=== PATIENT | female | born 1995 | race Caucasian/White ===

== ENCOUNTER → 2016-09-14 | Outpatient (REF) | payer OTHER ==
[~2016-09-14] MED LIST: ACET50TA PO; IBUP-1114 PO; PRENTAB9 PO
== END ==
LOC: M SFHCCAPE 09:38
PROVIDERS: ATTEND Physician Assistant
DX: R35.0 Frequency of micturition (principal)

== ENCOUNTER → 2016-09-18 | Outpatient (CLI) | payer OTHER ==
--- NOTE | 2016-09-19 01:54 | REP ---
Clinical: Pain without trauma . Technique: AP, lateral, bilateral oblique views left wrist . Findings: The carpal bones, surrounding osseous structures, soft tissues, and joint spaces are normal. There is no evidence for acute fracture or dislocation. No subcutaneous emphysema or radiodense foreign body. Impression: Normal wrist series. No acute fracture or dislocation Signed by Garrett Watson MD 09/19/2016 01:45 A
== END ==
LOC: M CLY 11:37
PROVIDERS: ATTEND Physician Assistant
DX: M25.532 Pain in left wrist (principal)

== ENCOUNTER → 2016-09-18 | Outpatient (REF) | payer OTHER | LOC: M SFHCCAPE 10:50 | PROVIDERS: ATTEND Physician Assistant | DX: N39.0 Urinary tract infection, site not specified (principal) ==

== ENCOUNTER 2016-09-23 17:09 | Emergency (ER) | payer OTHER ==
[2016-09-23] MEDS ORDERED: cefTRIAXone SOD 1 GM VIAL (J0696) As Ordered ONE (18:40)
[2016-09-23] MEDS ORDERED: AZITHROMYCIN 250 MG TAB As Ordered ONE (18:40)
[2016-09-23] MEDS ORDERED: LIDOCAINE 1% MDV 20ML VIAL As Ordered ONE (18:41)
--- NOTE | 2016-09-23 20:40 | REPUSA ---
CLINICAL HISTORY: Pelvic pain. TECHNIQUE: Realtime sonographic images were obtained in multiple projections via TA approach. COMMENTS: The uterus is anteverted measuring 9.4 x 5.1 x 6.6 cm. The endometrial echo pattern is within normal limits measuring 15 mm. There is trace amount of free fluid within the pelvic cul-de-sac. Both ovaries are free of solid or cystic mass. There is no evidence for abnormal vascularity. IMPRESSION: Normal study. Thank you for your kind referral of this patient.
--- NOTE | 2016-09-23 21:12 | EDDOCDS ---
Nurse's Notes [facility] Name: Marlys Mays Age: 20 yrs Sex: Female : 1995 Arrival Date: 09/23/2016 Time: 17:09 Bed I3 / M3 Private MD: Dena Calloway A. Diagnosis: Pelvic and perineal pain;Female pelvic inflammatory disease, unspecified Presentation: 09/23 17:24 Presenting complaint: Patient states: patient has increased vaginal pain. Patient gave hs1 naturally 3 months ago vaginally. Patient states increased pain. Patient also reports UTI symptoms. Patient has reported ongoing issue and multiple medications and multiple cultures and symptoms not improving. Adult Sepsis Screening: The patient does not have new or worsening altered mentation. Patient's respiratory rate is less than 22. Systolic blood pressure is greater than 100. Patient has a qSOFA score of 0- Negative Sepsis Screen. Suicide/Homicide risk assessment- the patient denies having any suicidal and/or homicidal ideations and does not present with any other emotional, behavioral or mental health complaints. 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 Transition of care: patient was not received from another setting of care. 17:24 Acuity: VERONICA Level 3 hs1 17:24 Method Of Arrival: Walkin/Carried/Asstd hs1 Triage Assessment: 17:30 General: Appears in no apparent distress, Behavior is appropriate for age, cooperative. hs1 Pain: Location: pelvis Pain currently is 9 out of 10 on a pain scale. Quality of pain is described as burning. HIV screening NA for this visit Offered previously. Respiratory: No deficits noted. Derm: Skin is pink, warm & dry. normal. 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 Cipro 500 mg Oral tab 1 tab every 12 hours (Last dose: 09/22/2016) - PMHx: none; - PSHx: Adenoidectomy; Tonsillectomy; - Social history: Smoking status: Patient states was never smoker of tobacco. No barriers to communication noted, The patient speaks fluent Indian, Speaks appropriately for age. - Family history: Not pertinent. - : The pt / caregiver states he / she is not on anticoagulants. Home medication list is obtained from the patient. - Exposure Risk Screening:: None identified. Screenin:53 Screening information is obtained from the patient. Fall risk: No risks identified. hs1 Assistance ADL's: requires no assistance with activities of daily living. Abuse/DV Screen: The patient / caregiver reports he/she is: not in a situation that causes fear, pain or injury. Nutritional screening: No deficits noted. Advance Directives: There is no active DNR order. home support is adequate. Assessment: 18:52 General: Appears in no apparent distress, well nourished, well groomed, Behavior is ttb appropriate for age, cooperative, pleasant. Pain: Location: lower abd. Neurological: Level of Consciousness is awake, alert. Cardiovascular: Chest pain is denied. Respiratory: No deficits noted. Airway is patent. Derm: Skin is normal. 19:40 Reassessment: Patient appears in no apparent distress at this time. pt back from US. ttb Steady gait. NAD noted.. 20:57 General: Appears in no apparent distress, comfortable, Behavior is appropriate for age, ms18 cooperative. Pain: Denies pain. Neurological: No deficits noted. Cardiovascular: No deficits noted. Respiratory: Airway is patent Respiratory effort is even, unlabored, Respiratory pattern is regular, symmetrical. GI: Abdomen is non- distended. :. Derm: Skin is pink, warm & dry. Vital Signs: 17:10 BP 145 / 86; Pulse 78; Resp 18 S; Temp 97.0; Pulse Ox 100% on R/A; Weight 72.57 kg (R); dd6 Height 5 ft. 2 in. (157.48 cm) (R); 20:57 BP 135 / 67; Pulse 74; Resp 18; Temp 97.4; Pulse Ox 100% ; Pain 0/10; ms18 17:10 Body Mass Index 29.26 (72.57 kg, 157.48 cm) dd6 Vitals: 17:10 Log In Time: September 23, 2016 at 17:08. dd6 ED Course: 17:10 Patient visited by Brendan Srinivasan PCA. dd6 17:10 Dena Calloway is Private Physician. dd6 17:10 Patient moved to Waiting dd6 17:11 Patient moved to Pre RCE dd6 17:28 Triage Initiated hs1 17:31 Patient moved to Triage 2 hs1 17:50 Noel Le PA is PHCP. btw 17:50 Laura Meraz MD is Attending Physician. btw 17:50 Patient visited by Noel Le PA. btw 17:53 Urine Culture Sent. ct3 18:08 Patient moved to I3 / M3 btw 18:35 Assist provider with pelvic exam: Set up pelvic tray. Specimens sent to lab. Performed ms18 by Noel ROBBINS Patient tolerated. 18:38 GC & Chlamydia Amplification Sent. jml1 18:38 Wet Prep Sent. jml1 18:45 Patient visited by Amy Christy,TR. ms18 18:45 No IV's were initiated during this patient's visit. ms18 18:52 The patient / caregiver is instructed regarding the plan of care and ED course. ttb Accompanied by Family Member, Patient has correct armband on for positive identification. 19:40 Patient visited by Renu Tripp RN. ttb 20:45 Patient visited by Amy Christy,TR. ms18 20:57 Phoenix Lamb MD is Referral Physician. btw 20:57 Property sent home with patient. :Personal belongings accompany Pt. ms18 21:00 [facility] Payment Agreement was scanned into [employer]ter and attached to record. zo 21:05 Patient visited by Amy Christy RN. ms18 Administered Medications: 18:52 Drug: cefTRIAXone 1 grams [ceftriaxone 1 gram solution for injection (1 grams)] Route: ttb IM; Site: left gluteus; 21:09 Follow up: Response: No Adverse Reaction ms18 18:52 Drug: azithromycin 1 grams [azithromycin 250 mg tablet (4 tabs)] Route: PO; ttb 21:09 Follow up: Response: No Adverse Reaction ms18 Point of Care Testing: Urine Dip: 17:52 pH: 5; ; Specific [place]: 1.010; Ketones: Moderate; Glucose: Negative; Protein: Trace; hs1 Leukocytes: Positive (+); Nitrite: Negative ; Blood: Negative; Bilirubin: Negative ; Urobilinogen: Normal Ranges: Order Results: Lab Order: Wet Prep; SPEC'M 09/23/16 18:30 Test: WET PREP; Value: WET PREP RESULT; Status: F Test: WET PREP; Value: MANY EPITHELIAL CELLS PRESENT; Status: F Test: WET PREP; Value: MANY WBC; Status: F Test: WET PREP; Value: MANY SHORT RODS PRESENT; Status: F Test: WET PREP; Value: FEW LONG RODS PRESENT; Status: F Outcome: 18:52 Ultrasound Study completed. ttb 20:57 Discharge ordered by Provider. btw 20:57 Discharge Assessment: Patient awake, alert and oriented x 3. No cognitive and/or ms18 functional deficits noted. Patient verbalized understanding of disposition instructions. patient administered narcotics - no. The following High Risk Discharge criteria are identified: None. Discharged to home ambulatory. Condition: good Condition: stable Condition: improved. Discharge instructions given to patient, Instructed on discharge instructions, follow up and referral plans. medication usage, Demonstrated understanding of instructions, medications, Pt was receptive of discharge instructions/ teaching. Prescriptions given X 1. 21:10 Patient left the ED. ms18 Signatures: Sony Mahmood Daniell, REFERENCE LIBRARY ASSISTANT REFERENCE LIBRARY ASSISTANT dd6 Noel Le PA PA btw Julita Spencer, RN RN hs1 Ying Jose, REFERENCE LIBRARY ASSISTANT REFERENCE LIBRARY ASSISTANT ct3 Cristino Ashraf jml1 Renu Tripp, RN RN ttb Amy ChristyRN RN ms18 SHEFALI
--- NOTE | 2016-09-23 21:12 | EDDOCDS ---
Physician Documentation [facility] Name: Marlys Mays Age: 20 yrs Sex: Female : 1995 Arrival Date: 09/23/2016 Time: 17:09 Bed I3 / M3 Private MD: Dena Calloway A. Disposition: 09/23/16 20:57 Discharged to Home/Self Care. Impression: Pelvic and perineal pain, Female pelvic inflammatory disease, unspecified. - Condition is Stable. - Discharge Instructions: Pelvic Inflammatory Disease, Pelvic Pain, Female. - Prescriptions for Diflucan 150 mg Oral Tablet - take 1 tablet by ORAL route one time for 1 day; 1 tablet. - Medication Reconciliation, Local Pharmacy Hours form. - Follow up: Phoenix Lamb MD; When: Call to arrange an appointment; Reason: Further diagnostic work-up, Recheck today's complaints, Continuance of care. - Problem is an ongoing problem. - Symptoms are unchanged. Historical: - Allergies: No known drug Allergies; - Home Meds: 1. Cipro 500 mg Oral tab 1 tab every 12 hours (Last dose: 09/22/2016) - PMHx: none; - PSHx: Adenoidectomy; Tonsillectomy; - Social history: Smoking status: Patient states was never smoker of tobacco. No barriers to communication noted, The patient speaks fluent German, Speaks appropriately for age. - Family history: Not pertinent. - : The pt / caregiver states he / she is not on anticoagulants. Home medication list is obtained from the patient. - Exposure Risk Screening:: None identified. 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 2 in. (157.48 cm) (R); 20:57 BP 135 / 67; Pulse 74; Resp 18; Temp 97.4; Pulse Ox 100% ; Pain 0/10; ms18 17:10 Body Mass Index 29.26 (72.57 kg, 157.48 cm) dd6 MDM: 17:42 Urine Dip ordered. btw 17:43 Urine Culture Ordered. EDMS 18:06 Set up pelvic ordered. btw 18:07 GC & Chlamydia Amplification Ordered. EDMS 18:07 Wet Prep Ordered. EDMS 18:38 cefTRIAXone 1 grams IM once ordered. btw 18:38 azithromycin 1 grams PO once ordered. btw 18:39 -US Pelvic Non-Ob Complete Ordered. EDMS 18:39 DUPLEX SCAN LIMITED (DOPPLER)+US Ordered. EDMS 18:50 Wet Prep Reviewed. btw 20:08 Financial registration complete. zo 21:00 [facility] Payment Agreement was scanned into [email or web address] and attached to record. zo Point of Care Testing: Urine Dip: 17:52 pH: 5; ; Specific [place]: 1.010; Ketones: Moderate; Glucose: Negative; Protein: Trace; hs1 Leukocytes: Positive (+); Nitrite: Negative ; Blood: Negative; Bilirubin: Negative ; Urobilinogen: Normal Ranges: Administered Medications: 18:52 Drug: cefTRIAXone 1 grams [ceftriaxone 1 gram solution for injection (1 grams)] Route: ttb IM; Site: left gluteus; 21:09 Follow up: Response: No Adverse Reaction ms18 18:52 Drug: azithromycin 1 grams [azithromycin 250 mg tablet (4 tabs)] Route: PO; ttb 21:09 Follow up: Response: No Adverse Reaction ms18 Signatures: Dispatcher MedHost Sony Cordova Brandon, PA PA btw Julita Specner RN RN hs1 Renu Tripp RN RN ttb Amy Christy RN RN ms18 The chart was reviewed and I authenticate all verbal orders and agree with the evaluation and treatment provided.Attachments: 21:00 [facility] Payment Agreement zo MTDD
--- NOTE | 2016-09-25 22:11 | EDDOCDS ---
Physician Documentation [facility] Name: Marlys Mays Age: 20 yrs Sex: Female : 1995 Arrival Date: 09/23/2016 Time: 17:09 Bed I3 / M3 Private MD: Dena Calloway A. Disposition: 09/23/16 20:57 Discharged to Home/Self Care. Impression: Pelvic and perineal pain, Female pelvic inflammatory disease, unspecified. - Condition is Stable. - Discharge Instructions: Pelvic Inflammatory Disease, Pelvic Pain, Female. - Prescriptions for Diflucan 150 mg Oral Tablet - take 1 tablet by ORAL route one time for 1 day; 1 tablet. - Medication Reconciliation, Local Pharmacy Hours form. - Follow up: Phoenix Lamb MD; When: Call to arrange an appointment; Reason: Further diagnostic work-up, Recheck today's complaints, Continuance of care. - Problem is an ongoing problem. - Symptoms are unchanged. Historical: - Allergies: No known drug Allergies; - Home Meds: 1. Cipro 500 mg Oral tab 1 tab every 12 hours (Last dose: 09/22/2016) - PMHx: none; - PSHx: Adenoidectomy; Tonsillectomy; - Social history: Smoking status: Patient states was never smoker of tobacco. No barriers to communication noted, The patient speaks fluent Mexican, Speaks appropriately for age. - Family history: Not pertinent. - : The pt / caregiver states he / she is not on anticoagulants. Home medication list is obtained from the patient. - Exposure Risk Screening:: None identified. 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 2 in. (157.48 cm) (R); 20:57 BP 135 / 67; Pulse 74; Resp 18; Temp 97.4; Pulse Ox 100% ; Pain 0/10; ms18 17:10 Body Mass Index 29.26 (72.57 kg, 157.48 cm) dd6 MDM: 17:42 Urine Dip ordered. btw 17:43 Urine Culture Ordered. EDMS 18:06 Set up pelvic ordered. btw 18:07 GC & Chlamydia Amplification Ordered. EDMS 18:07 Wet Prep Ordered. EDMS 18:38 cefTRIAXone 1 grams IM once ordered. btw 18:38 azithromycin 1 grams PO once ordered. btw 18:39 -US Pelvic Non-Ob Complete Ordered. EDMS 18:39 DUPLEX SCAN LIMITED (DOPPLER)+US Ordered. EDMS 18:50 Wet Prep Reviewed. btw 20:08 Financial registration complete. zo 21:00 [facility] Payment Agreement was scanned into [employer] and attached to record. zo 09/24 19:15 T-Sheet-- Draft Copy was scanned into [employer] and attached to record. klr Point of Care Testing: Urine Dip: 09/23 17:52 pH: 5; ; Specific [place]: 1.010; Ketones: Moderate; Glucose: Negative; Protein: Trace; hs1 Leukocytes: Positive (+); Nitrite: Negative ; Blood: Negative; Bilirubin: Negative ; Urobilinogen: Normal Ranges: Administered Medications: 18:52 Drug: cefTRIAXone 1 grams [ceftriaxone 1 gram solution for injection (1 grams)] Route: ttb IM; Site: left gluteus; 21:09 Follow up: Response: No Adverse Reaction ms18 18:52 Drug: azithromycin 1 grams [azithromycin 250 mg tablet (4 tabs)] Route: PO; ttb 21:09 Follow up: Response: No Adverse Reaction ms18 Signatures: Dispatcher MedHost EDMS Sony Mahmood Brandon, PA PA btw Julita Spencer RN RN hs1 Renu Tripp RN RN ttb Amy Christy RN RN ms18 Gwen Collier klr The chart was reviewed and I authenticate all verbal orders and agree with the evaluation and treatment provided.Attachments: 21:00 [facility] Payment Agreement zo 09/24 19:15 T-Sheet-- Draft Copy klr Chart Complete MTDD
--- NOTE | 2016-09-25 22:11 | EDDOCDS ---
Nurse's Notes [facility] Name: Marlys Mays Age: 20 yrs Sex: Female : 1995 Arrival Date: 09/23/2016 Time: 17:09 Bed I3 / M3 Private MD: Dena Calloway A. Diagnosis: Pelvic and perineal pain;Female pelvic inflammatory disease, unspecified Presentation: 09/23 17:24 Presenting complaint: Patient states: patient has increased vaginal pain. Patient gave hs1 naturally 3 months ago vaginally. Patient states increased pain. Patient also reports UTI symptoms. Patient has reported ongoing issue and multiple medications and multiple cultures and symptoms not improving. Adult Sepsis Screening: The patient does not have new or worsening altered mentation. Patient's respiratory rate is less than 22. Systolic blood pressure is greater than 100. Patient has a qSOFA score of 0- Negative Sepsis Screen. Suicide/Homicide risk assessment- the patient denies having any suicidal and/or homicidal ideations and does not present with any other emotional, behavioral or mental health complaints. 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 Transition of care: patient was not received from another setting of care. 17:24 Acuity: VERONICA Level 3 hs1 17:24 Method Of Arrival: Walkin/Carried/Asstd hs1 Triage Assessment: 17:30 General: Appears in no apparent distress, Behavior is appropriate for age, cooperative. hs1 Pain: Location: pelvis Pain currently is 9 out of 10 on a pain scale. Quality of pain is described as burning. HIV screening NA for this visit Offered previously. Respiratory: No deficits noted. Derm: Skin is pink, warm & dry. normal. 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 Cipro 500 mg Oral tab 1 tab every 12 hours (Last dose: 09/22/2016) - PMHx: none; - PSHx: Adenoidectomy; Tonsillectomy; - Social history: Smoking status: Patient states was never smoker of tobacco. No barriers to communication noted, The patient speaks fluent Irish, Speaks appropriately for age. - Family history: Not pertinent. - : The pt / caregiver states he / she is not on anticoagulants. Home medication list is obtained from the patient. - Exposure Risk Screening:: None identified. Screenin:53 Screening information is obtained from the patient. Fall risk: No risks identified. hs1 Assistance ADL's: requires no assistance with activities of daily living. Abuse/DV Screen: The patient / caregiver reports he/she is: not in a situation that causes fear, pain or injury. Nutritional screening: No deficits noted. Advance Directives: There is no active DNR order. home support is adequate. Assessment: 18:52 General: Appears in no apparent distress, well nourished, well groomed, Behavior is ttb appropriate for age, cooperative, pleasant. Pain: Location: lower abd. Neurological: Level of Consciousness is awake, alert. Cardiovascular: Chest pain is denied. Respiratory: No deficits noted. Airway is patent. Derm: Skin is normal. 19:40 Reassessment: Patient appears in no apparent distress at this time. pt back from US. ttb Steady gait. NAD noted.. 20:57 General: Appears in no apparent distress, comfortable, Behavior is appropriate for age, ms18 cooperative. Pain: Denies pain. Neurological: No deficits noted. Cardiovascular: No deficits noted. Respiratory: Airway is patent Respiratory effort is even, unlabored, Respiratory pattern is regular, symmetrical. GI: Abdomen is non- distended. :. Derm: Skin is pink, warm & dry. Vital Signs: 17:10 BP 145 / 86; Pulse 78; Resp 18 S; Temp 97.0; Pulse Ox 100% on R/A; Weight 72.57 kg (R); dd6 Height 5 ft. 2 in. (157.48 cm) (R); 20:57 BP 135 / 67; Pulse 74; Resp 18; Temp 97.4; Pulse Ox 100% ; Pain 0/10; ms18 17:10 Body Mass Index 29.26 (72.57 kg, 157.48 cm) dd6 Vitals: 17:10 Log In Time: September 23, 2016 at 17:08. dd6 ED Course: 17:10 Patient visited by Brendan Srinivasan PCA. dd6 17:10 Dena Calloway is Private Physician. dd6 17:10 Patient moved to Waiting dd6 17:11 Patient moved to Pre RCE dd6 17:28 Triage Initiated hs1 17:31 Patient moved to Triage 2 hs1 17:50 Noel Le PA is PHCP. btw 17:50 Laura Meraz MD is Attending Physician. btw 17:50 Patient visited by Noel Le PA. btw 17:53 Urine Culture Sent. ct3 18:08 Patient moved to I3 / M3 btw 18:35 Assist provider with pelvic exam: Set up pelvic tray. Specimens sent to lab. Performed ms18 by Noel ROBBINS Patient tolerated. 18:38 GC & Chlamydia Amplification Sent. jml1 18:38 Wet Prep Sent. jml1 18:45 Patient visited by Amy Christy,TR. ms18 18:45 No IV's were initiated during this patient's visit. ms18 18:52 The patient / caregiver is instructed regarding the plan of care and ED course. ttb Accompanied by Family Member, Patient has correct armband on for positive identification. 19:40 Patient visited by Renu Tripp RN. ttb 20:45 Patient visited by Amy Christy,TR. ms18 20:57 Phoenix Lamb MD is Referral Physician. btw 20:57 Property sent home with patient. :Personal belongings accompany Pt. ms18 21:00 [facility] Payment Agreement was scanned into [employer] and attached to record. zo 21:05 Patient visited by Amy Christy RN. ms18 21:18 -US Pelvic Non-Ob Complete Returned. EDMS 09/24 19:15 T-Sheet-- Draft Copy was scanned into [employer] and attached to record. klr Administered Medications: 09/23 18:52 Drug: cefTRIAXone 1 grams [ceftriaxone 1 gram solution for injection (1 grams)] Route: ttb IM; Site: left gluteus; 21:09 Follow up: Response: No Adverse Reaction ms18 18:52 Drug: azithromycin 1 grams [azithromycin 250 mg tablet (4 tabs)] Route: PO; ttb 21:09 Follow up: Response: No Adverse Reaction ms18 Point of Care Testing: Urine Dip: 17:52 pH: 5; ; Specific [place]: 1.010; Ketones: Moderate; Glucose: Negative; Protein: Trace; hs1 Leukocytes: Positive (+); Nitrite: Negative ; Blood: Negative; Bilirubin: Negative ; Urobilinogen: Normal Ranges: Order Results: Lab Order: Urine Culture; SPEC'M 09/23/16 17:47 Test: URINE CULTURE; Value: <EXTERNAL COMMENT eCWMed> FULL REPORT IN LAB NOTES (eCW and Medent).; Status: F Test: URINE CULTURE; Value: URINE CULTURE RESULT NO GROWTH CLINICAL SIGNIFICANCE 1 ORGANISM; Status: F Lab Order: Wet Prep; SPEC'M 09/23/16 18:30 Test: WET PREP; Value: WET PREP RESULT; Status: F Test: WET PREP; Value: MANY EPITHELIAL CELLS PRESENT; Status: F Test: WET PREP; Value: MANY WBC; Status: F Test: WET PREP; Value: MANY SHORT RODS PRESENT; Status: F Test: WET PREP; Value: FEW LONG RODS PRESENT; Status: F Lab Order: GC & Chlamydia Amplification; SPEC'M 09/23/16 18:30 Test: CHLAMYDIA DNA AMPLIFICATION; Value: NEGATIVE; Range: NEGATIVE; Status: F Test: GC DNA AMPLIFICATION; Value: NEGATIVE; Range: NEGATIVE; Status: F Radiology Order: -US Pelvic Non-Ob Complete Test: -US Pelvic Non-Ob Complete REASON FOR EXAMINATION: Adnexal Pain r/o Torsion; ; CLINICAL HISTORY: Pelvic pain.; TECHNIQUE: Realtime sonographic images were obtained in multiple projections via TA approach.; COMMENTS:; The uterus is anteverted measuring 9.4 x 5.1 x 6.6 cm. The endometrial echo pattern is within normal; limits measuring 15 mm.; There is trace amount of free fluid within the pelvic cul-de-sac.; Both ovaries are free of solid or cystic mass.; There is no evidence for abnormal vascularity.; IMPRESSION:; Normal study.; Thank you for your kind referral of this patient.; ; Outcome: 18:52 Ultrasound Study completed. ttb 20:57 Discharge ordered by Provider. btw 20:57 Discharge Assessment: Patient awake, alert and oriented x 3. No cognitive and/or ms18 functional deficits noted. Patient verbalized understanding of disposition instructions. patient administered narcotics - no. The following High Risk Discharge criteria are identified: None. Discharged to home ambulatory. Condition: good Condition: stable Condition: improved. Discharge instructions given to patient, Instructed on discharge instructions, follow up and referral plans. medication usage, Demonstrated understanding of instructions, medications, Pt was receptive of discharge instructions/ teaching. Prescriptions given X 1. 21:10 Patient left the ED. ms18 Signatures: Dispatcher MedHost EDMS Sony Mahmood Daniell, SPECIAL LIBRARY LIBRARIAN SPECIAL LIBRARY LIBRARIAN dd6 Noel Le PA PA btw Julita Spencer, RN RN hs1 Jose, Ying, SPECIAL LIBRARY LIBRARIAN SPECIAL LIBRARY LIBRARIAN ct3 Cristino Ashraf jml1 Renu Tripp RN RN ttb Amy Christy RN RN ms18 Gwen Collier Chart Complete MTDD
--- NOTE | 2016-09-25 22:11 | EDDOCDS ---
Physician Documentation [facility] Name: Marlys Mays Age: 20 yrs Sex: Female : 1995 Arrival Date: 09/23/2016 Time: 17:09 Bed I3 / M3 Private MD: Dena Calloway A. Disposition: 09/23/16 20:57 Discharged to Home/Self Care. Impression: Pelvic and perineal pain, Female pelvic inflammatory disease, unspecified. - Condition is Stable. - Discharge Instructions: Pelvic Inflammatory Disease, Pelvic Pain, Female. - Prescriptions for Diflucan 150 mg Oral Tablet - take 1 tablet by ORAL route one time for 1 day; 1 tablet. - Medication Reconciliation, Local Pharmacy Hours form. - Follow up: Phoenix Lamb MD; When: Call to arrange an appointment; Reason: Further diagnostic work-up, Recheck today's complaints, Continuance of care. - Problem is an ongoing problem. - Symptoms are unchanged. Historical: - Allergies: No known drug Allergies; - Home Meds: 1. Cipro 500 mg Oral tab 1 tab every 12 hours (Last dose: 09/22/2016) - PMHx: none; - PSHx: Adenoidectomy; Tonsillectomy; - Social history: Smoking status: Patient states was never smoker of tobacco. No barriers to communication noted, The patient speaks fluent Grenadian, Speaks appropriately for age. - Family history: Not pertinent. - : The pt / caregiver states he / she is not on anticoagulants. Home medication list is obtained from the patient. - Exposure Risk Screening:: None identified. 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 2 in. (157.48 cm) (R); 20:57 BP 135 / 67; Pulse 74; Resp 18; Temp 97.4; Pulse Ox 100% ; Pain 0/10; ms18 17:10 Body Mass Index 29.26 (72.57 kg, 157.48 cm) dd6 MDM: 17:42 Urine Dip ordered. btw 17:43 Urine Culture Ordered. EDMS 18:06 Set up pelvic ordered. btw 18:07 GC & Chlamydia Amplification Ordered. EDMS 18:07 Wet Prep Ordered. EDMS 18:38 cefTRIAXone 1 grams IM once ordered. btw 18:38 azithromycin 1 grams PO once ordered. btw 18:39 -US Pelvic Non-Ob Complete Ordered. EDMS 18:39 DUPLEX SCAN LIMITED (DOPPLER)+US Ordered. EDMS 18:50 Wet Prep Reviewed. btw 20:08 Financial registration complete. zo 21:00 [facility] Payment Agreement was scanned into [employer] and attached to record. zo 09/24 19:15 T-Sheet-- Draft Copy was scanned into [employer] and attached to record. klr Point of Care Testing: Urine Dip: 09/23 17:52 pH: 5; ; Specific [place]: 1.010; Ketones: Moderate; Glucose: Negative; Protein: Trace; hs1 Leukocytes: Positive (+); Nitrite: Negative ; Blood: Negative; Bilirubin: Negative ; Urobilinogen: Normal Ranges: Administered Medications: 18:52 Drug: cefTRIAXone 1 grams [ceftriaxone 1 gram solution for injection (1 grams)] Route: ttb IM; Site: left gluteus; 21:09 Follow up: Response: No Adverse Reaction ms18 18:52 Drug: azithromycin 1 grams [azithromycin 250 mg tablet (4 tabs)] Route: PO; ttb 21:09 Follow up: Response: No Adverse Reaction ms18 Signatures: Dispatcher [employer] EDMS Sony Mahmood Brandon, PA PA btw Julita Spencer RN RN hs1 Renu Tripp RN RN ttb Amy Christy RN RN ms18 Gwen Collier klr The chart was reviewed and I authenticate all verbal orders and agree with the evaluation and treatment provided.Attachments: 21:00 [facility] Payment Agreement zo 09/24 19:15 T-Sheet-- Draft Copy klr Chart Complete MTDD
--- NOTE | 2016-09-26 15:09 | EDDOCDS ---
Physician Documentation [facility] Name: Marlys Mays Age: 20 yrs Sex: Female : 1995 Arrival Date: 09/23/2016 Time: 17:09 Bed I3 / M3 Private MD: Dena Calloway A. Disposition: 09/23/16 20:57 Discharged to Home/Self Care. Impression: Pelvic and perineal pain, Female pelvic inflammatory disease, unspecified. - Condition is Stable. - Discharge Instructions: Pelvic Inflammatory Disease, Pelvic Pain, Female. - Prescriptions for Diflucan 150 mg Oral Tablet - take 1 tablet by ORAL route one time for 1 day; 1 tablet. - Medication Reconciliation, Local Pharmacy Hours form. - Follow up: Phoenix Lamb MD; When: Call to arrange an appointment; Reason: Further diagnostic work-up, Recheck today's complaints, Continuance of care. - Problem is an ongoing problem. - Symptoms are unchanged. Historical: - Allergies: No known drug Allergies; - Home Meds: 1. Cipro 500 mg Oral tab 1 tab every 12 hours (Last dose: 09/22/2016) - PMHx: none; - PSHx: Adenoidectomy; Tonsillectomy; - Social history: Smoking status: Patient states was never smoker of tobacco. No barriers to communication noted, The patient speaks fluent Afghan, Speaks appropriately for age. - Family history: Not pertinent. - : The pt / caregiver states he / she is not on anticoagulants. Home medication list is obtained from the patient. - Exposure Risk Screening:: None identified. 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 2 in. (157.48 cm) (R); 20:57 BP 135 / 67; Pulse 74; Resp 18; Temp 97.4; Pulse Ox 100% ; Pain 0/10; ms18 17:10 Body Mass Index 29.26 (72.57 kg, 157.48 cm) dd6 MDM: 17:42 Urine Dip ordered. btw 17:43 Urine Culture Ordered. EDMS 18:06 Set up pelvic ordered. btw 18:07 GC & Chlamydia Amplification Ordered. EDMS 18:07 Wet Prep Ordered. EDMS 18:38 cefTRIAXone 1 grams IM once ordered. btw 18:38 azithromycin 1 grams PO once ordered. btw 18:39 -US Pelvic Non-Ob Complete Ordered. EDMS 18:39 DUPLEX SCAN LIMITED (DOPPLER)+US Ordered. EDMS 18:50 Wet Prep Reviewed. btw 20:08 Financial registration complete. zo 21:00 [facility] Payment Agreement was scanned into [employer] and attached to record. zo 09/24 19:15 T-Sheet-- Draft Copy was scanned into [employer] and attached to record. klr Point of Care Testing: Urine Dip: 09/23 17:52 pH: 5; ; Specific [place]: 1.010; Ketones: Moderate; Glucose: Negative; Protein: Trace; hs1 Leukocytes: Positive (+); Nitrite: Negative ; Blood: Negative; Bilirubin: Negative ; Urobilinogen: Normal Ranges: Administered Medications: 18:52 Drug: cefTRIAXone 1 grams [ceftriaxone 1 gram solution for injection (1 grams)] Route: ttb IM; Site: left gluteus; 21:09 Follow up: Response: No Adverse Reaction ms18 18:52 Drug: azithromycin 1 grams [azithromycin 250 mg tablet (4 tabs)] Route: PO; ttb 21:09 Follow up: Response: No Adverse Reaction ms18 Signatures: Dispatcher [employer] EDMS Sony Mahmood Brandon, PA PA btw Julita Spencer RN RN hs1 Renu Tripp RN RN ttb Amy Christy RN RN ms18 Gwen Collier klr The chart was reviewed and I authenticate all verbal orders and agree with the evaluation and treatment provided.Attachments: 21:00 [facility] Payment Agreement zo 09/24 19:15 T-Sheet-- Draft Copy klr Chart Complete MTDD
--- NOTE | 2016-09-26 15:09 | EDDOCDS ---
Nurse's Notes [facility] Name: Marlys Mays Age: 20 yrs Sex: Female : 1995 Arrival Date: 09/23/2016 Time: 17:09 Bed I3 / M3 Private MD: Dena Calloway A. Diagnosis: Pelvic and perineal pain;Female pelvic inflammatory disease, unspecified Presentation: 09/23 17:24 Presenting complaint: Patient states: patient has increased vaginal pain. Patient gave hs1 naturally 3 months ago vaginally. Patient states increased pain. Patient also reports UTI symptoms. Patient has reported ongoing issue and multiple medications and multiple cultures and symptoms not improving. Adult Sepsis Screening: The patient does not have new or worsening altered mentation. Patient's respiratory rate is less than 22. Systolic blood pressure is greater than 100. Patient has a qSOFA score of 0- Negative Sepsis Screen. Suicide/Homicide risk assessment- the patient denies having any suicidal and/or homicidal ideations and does not present with any other emotional, behavioral or mental health complaints. Status: Patient is not a travel services professional or dependent. Transition of care: patient was not received from another setting of care. 17:24 Acuity: VERONICA Level 3 hs1 17:24 Method Of Arrival: Walkin/Carried/Asstd hs1 Triage Assessment: 17:30 General: Appears in no apparent distress, Behavior is appropriate for age, cooperative. hs1 Pain: Location: pelvis Pain currently is 9 out of 10 on a pain scale. Quality of pain is described as burning. HIV screening NA for this visit Offered previously. Respiratory: No deficits noted. Derm: Skin is pink, warm & dry. normal. 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 Cipro 500 mg Oral tab 1 tab every 12 hours (Last dose: 09/22/2016) - PMHx: none; - PSHx: Adenoidectomy; Tonsillectomy; - Social history: Smoking status: Patient states was never smoker of tobacco. No barriers to communication noted, The patient speaks fluent Bhutanese, Speaks appropriately for age. - Family history: Not pertinent. - : The pt / caregiver states he / she is not on anticoagulants. Home medication list is obtained from the patient. - Exposure Risk Screening:: None identified. Screenin:53 Screening information is obtained from the patient. Fall risk: No risks identified. hs1 Assistance ADL's: requires no assistance with activities of daily living. Abuse/DV Screen: The patient / caregiver reports he/she is: not in a situation that causes fear, pain or injury. Nutritional screening: No deficits noted. Advance Directives: There is no active DNR order. home support is adequate. Assessment: 18:52 General: Appears in no apparent distress, well nourished, well groomed, Behavior is ttb appropriate for age, cooperative, pleasant. Pain: Location: lower abd. Neurological: Level of Consciousness is awake, alert. Cardiovascular: Chest pain is denied. Respiratory: No deficits noted. Airway is patent. Derm: Skin is normal. 19:40 Reassessment: Patient appears in no apparent distress at this time. pt back from US. ttb Steady gait. NAD noted.. 20:57 General: Appears in no apparent distress, comfortable, Behavior is appropriate for age, ms18 cooperative. Pain: Denies pain. Neurological: No deficits noted. Cardiovascular: No deficits noted. Respiratory: Airway is patent Respiratory effort is even, unlabored, Respiratory pattern is regular, symmetrical. GI: Abdomen is non- distended. :. Derm: Skin is pink, warm & dry. Vital Signs: 17:10 BP 145 / 86; Pulse 78; Resp 18 S; Temp 97.0; Pulse Ox 100% on R/A; Weight 72.57 kg (R); dd6 Height 5 ft. 2 in. (157.48 cm) (R); 20:57 BP 135 / 67; Pulse 74; Resp 18; Temp 97.4; Pulse Ox 100% ; Pain 0/10; ms18 17:10 Body Mass Index 29.26 (72.57 kg, 157.48 cm) dd6 Vitals: 17:10 Log In Time: September 23, 2016 at 17:08. dd6 ED Course: 17:10 Patient visited by Brendan Srinivasan PCA. dd6 17:10 Dena Calloway is Private Physician. dd6 17:10 Patient moved to Waiting dd6 17:11 Patient moved to Pre RCE dd6 17:28 Triage Initiated hs1 17:31 Patient moved to Triage 2 hs1 17:50 Noel Le PA is PHCP. btw 17:50 Laura Meraz MD is Attending Physician. btw 17:50 Patient visited by Noel Le PA. btw 17:53 Urine Culture Sent. ct3 18:08 Patient moved to I3 / M3 btw 18:35 Assist provider with pelvic exam: Set up pelvic tray. Specimens sent to lab. Performed ms18 by Noel ROBBINS Patient tolerated. 18:38 GC & Chlamydia Amplification Sent. jml1 18:38 Wet Prep Sent. jml1 18:45 Patient visited by Amy Christy,TR. ms18 18:45 No IV's were initiated during this patient's visit. ms18 18:52 The patient / caregiver is instructed regarding the plan of care and ED course. ttb Accompanied by Family Member, Patient has correct armband on for positive identification. 19:40 Patient visited by Renu Tripp RN. ttb 20:45 Patient visited by Amy Christy,TR. ms18 20:57 Phoenix Lamb MD is Referral Physician. btw 20:57 Property sent home with patient. :Personal belongings accompany Pt. ms18 21:00 [facility] Payment Agreement was scanned into [employer] and attached to record. zo 21:05 Patient visited by Amy Christy RN. ms18 21:18 -US Pelvic Non-Ob Complete Returned. EDMS 09/24 19:15 T-Sheet-- Draft Copy was scanned into [employer] and attached to record. klr Administered Medications: 09/23 18:52 Drug: cefTRIAXone 1 grams [ceftriaxone 1 gram solution for injection (1 grams)] Route: ttb IM; Site: left gluteus; 21:09 Follow up: Response: No Adverse Reaction ms18 18:52 Drug: azithromycin 1 grams [azithromycin 250 mg tablet (4 tabs)] Route: PO; ttb 21:09 Follow up: Response: No Adverse Reaction ms18 Point of Care Testing: Urine Dip: 17:52 pH: 5; ; Specific [place]: 1.010; Ketones: Moderate; Glucose: Negative; Protein: Trace; hs1 Leukocytes: Positive (+); Nitrite: Negative ; Blood: Negative; Bilirubin: Negative ; Urobilinogen: Normal Ranges: Order Results: Lab Order: Urine Culture; SPEC'M 09/23/16 17:47 Test: URINE CULTURE; Value: <EXTERNAL COMMENT eCWMed> FULL REPORT IN LAB NOTES (eCW and Medent).; Status: F Test: URINE CULTURE; Value: URINE CULTURE RESULT NO GROWTH CLINICAL SIGNIFICANCE 1 ORGANISM; Status: F Lab Order: Wet Prep; SPEC'M 09/23/16 18:30 Test: WET PREP; Value: WET PREP RESULT; Status: F Test: WET PREP; Value: MANY EPITHELIAL CELLS PRESENT; Status: F Test: WET PREP; Value: MANY WBC; Status: F Test: WET PREP; Value: MANY SHORT RODS PRESENT; Status: F Test: WET PREP; Value: FEW LONG RODS PRESENT; Status: F Lab Order: GC & Chlamydia Amplification; SPEC'M 09/23/16 18:30 Test: CHLAMYDIA DNA AMPLIFICATION; Value: NEGATIVE; Range: NEGATIVE; Status: F Test: GC DNA AMPLIFICATION; Value: NEGATIVE; Range: NEGATIVE; Status: F Radiology Order: -US Pelvic Non-Ob Complete Test: -US Pelvic Non-Ob Complete REASON FOR EXAMINATION: Adnexal Pain r/o Torsion; ; CLINICAL HISTORY: Pelvic pain.; TECHNIQUE: Realtime sonographic images were obtained in multiple projections via TA approach.; COMMENTS:; The uterus is anteverted measuring 9.4 x 5.1 x 6.6 cm. The endometrial echo pattern is within normal; limits measuring 15 mm.; There is trace amount of free fluid within the pelvic cul-de-sac.; Both ovaries are free of solid or cystic mass.; There is no evidence for abnormal vascularity.; IMPRESSION:; Normal study.; Thank you for your kind referral of this patient.; ; Outcome: 18:52 Ultrasound Study completed. ttb 20:57 Discharge ordered by Provider. btw 20:57 Discharge Assessment: Patient awake, alert and oriented x 3. No cognitive and/or ms18 functional deficits noted. Patient verbalized understanding of disposition instructions. patient administered narcotics - no. The following High Risk Discharge criteria are identified: None. Discharged to home ambulatory. Condition: good Condition: stable Condition: improved. Discharge instructions given to patient, Instructed on discharge instructions, follow up and referral plans. medication usage, Demonstrated understanding of instructions, medications, Pt was receptive of discharge instructions/ teaching. Prescriptions given X 1. 21:10 Patient left the ED. ms18 Signatures: Dispatcher [employer] EDMS Sony Mahmood Daniell, CURTAIN WORKER CURTAIN WORKER dd6 Noel Le PA PA btw Julita Spencer, RN RN hs1 Jose, Ying, CURTAIN WORKER CURTAIN WORKER ct3 Cristino Ashraf jml1 Renu Tripp RN RN ttb Amy Christy RN RN ms18 Gwen Collier Chart Complete MTDD
--- NOTE | 2016-09-26 15:09 | EDDOCDS ---
Physician Documentation [facility] Name: Marlys Mays Age: 20 yrs Sex: Female : 1995 Arrival Date: 09/23/2016 Time: 17:09 Bed I3 / M3 Private MD: Dena Calloway A. Disposition: 09/23/16 20:57 Discharged to Home/Self Care. Impression: Pelvic and perineal pain, Female pelvic inflammatory disease, unspecified. - Condition is Stable. - Discharge Instructions: Pelvic Inflammatory Disease, Pelvic Pain, Female. - Prescriptions for Diflucan 150 mg Oral Tablet - take 1 tablet by ORAL route one time for 1 day; 1 tablet. - Medication Reconciliation, Local Pharmacy Hours form. - Follow up: Phoenix Lamb MD; When: Call to arrange an appointment; Reason: Further diagnostic work-up, Recheck today's complaints, Continuance of care. - Problem is an ongoing problem. - Symptoms are unchanged. Historical: - Allergies: No known drug Allergies; - Home Meds: 1. Cipro 500 mg Oral tab 1 tab every 12 hours (Last dose: 09/22/2016) - PMHx: none; - PSHx: Adenoidectomy; Tonsillectomy; - Social history: Smoking status: Patient states was never smoker of tobacco. No barriers to communication noted, The patient speaks fluent Bahraini, Speaks appropriately for age. - Family history: Not pertinent. - : The pt / caregiver states he / she is not on anticoagulants. Home medication list is obtained from the patient. - Exposure Risk Screening:: None identified. 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 2 in. (157.48 cm) (R); 20:57 BP 135 / 67; Pulse 74; Resp 18; Temp 97.4; Pulse Ox 100% ; Pain 0/10; ms18 17:10 Body Mass Index 29.26 (72.57 kg, 157.48 cm) dd6 MDM: 17:42 Urine Dip ordered. btw 17:43 Urine Culture Ordered. EDMS 18:06 Set up pelvic ordered. btw 18:07 GC & Chlamydia Amplification Ordered. EDMS 18:07 Wet Prep Ordered. EDMS 18:38 cefTRIAXone 1 grams IM once ordered. btw 18:38 azithromycin 1 grams PO once ordered. btw 18:39 -US Pelvic Non-Ob Complete Ordered. EDMS 18:39 DUPLEX SCAN LIMITED (DOPPLER)+US Ordered. EDMS 18:50 Wet Prep Reviewed. btw 20:08 Financial registration complete. zo 21:00 [facility] Payment Agreement was scanned into [employer] and attached to record. zo 09/24 19:15 T-Sheet-- Draft Copy was scanned into [employer] and attached to record. klr Point of Care Testing: Urine Dip: 09/23 17:52 pH: 5; ; Specific [place]: 1.010; Ketones: Moderate; Glucose: Negative; Protein: Trace; hs1 Leukocytes: Positive (+); Nitrite: Negative ; Blood: Negative; Bilirubin: Negative ; Urobilinogen: Normal Ranges: Administered Medications: 18:52 Drug: cefTRIAXone 1 grams [ceftriaxone 1 gram solution for injection (1 grams)] Route: ttb IM; Site: left gluteus; 21:09 Follow up: Response: No Adverse Reaction ms18 18:52 Drug: azithromycin 1 grams [azithromycin 250 mg tablet (4 tabs)] Route: PO; ttb 21:09 Follow up: Response: No Adverse Reaction ms18 Signatures: Dispatcher [employer] EDMS Sony Mahmood Brandon, PA PA btw Julita Spencer RN RN hs1 Renu Tripp RN RN ttb Amy Christy RN RN ms18 Gwen Collier klr The chart was reviewed and I authenticate all verbal orders and agree with the evaluation and treatment provided.Attachments: 21:00 [facility] Payment Agreement zo 09/24 19:15 T-Sheet-- Draft Copy klr Chart Complete MTDD
== END 2016-09-23 21:10 | disposition home or self-care (01) ==
LOC: M ED 17:09
DX: N76.0 Acute vaginitis (principal); N73.9 Female pelvic inflammatory disease, unspecified; Z90.89 Acquired absence of other organs
CPT/HCPCS: 76856; 87086; 87210; 87491; 87591; 93976; 96372; 99284; J0696

== ENCOUNTER → 2017-01-04 | Outpatient (REF) | payer OTHER ==
[2017-01-04 19:05] LABS: ALBUMIN 3.8 GM/DL (3.2-5.2); ALBUMIN/GLOBULIN RATIO 1.12 (1.00-1.93); ALKALINE PHOSPHATASE 109 U/L (45-117); ALT/SGPT 16 U/L (12-78); ANION GAP 5 MEQ/L (8-16); AST/SGOT 9 U/L (15-37); BILIRUBIN,TOTAL 0.6 MG/DL (0.2-1.0); BLOOD UREA NITROGEN 19 MG/DL (7-18); CALCIUM LEVEL 8.5 MG/DL (8.5-10.1); CARBON DIOXIDE LEVEL 29 MEQ/L (21-32); CHLORIDE LEVEL 106 MEQ/L (98-107); CREATININE FOR GFR 0.76 MG/DL (0.55-1.02); FREE T4 1.25 NG/DL (0.76-1.46); GLOMERULAR FILTRATION RATE > 60.0 (>60); GLUCOSE, FASTING 101 MG/DL (70-105); POTASSIUM SERUM 4.1 MEQ/L (3.5-5.1); SODIUM LEVEL 140 MEQ/L (136-145); TOTAL PROTEIN 7.2 GM/DL (6.4-8.2)
[2017-01-04 20:28] LABS: BASO % 0.5 % (0.0-1.0); EOS # 0.1 K/mm3 (0.0-0.50); EOS % 1.5 % (0.0-3.0); LARGE UNSTAINED CELL # 0.1 K/mm3 (0.0-0.4); LARGE UNSTAINED CELL % 1.2 % (0.0-4.0); LYMPH % 24.6 % (24.0-44.0); MEAN CORPUSCULAR HEMOGLOBIN 29.4 pg (27.0-33.0); MEAN CORPUSCULAR HGB CONC 33.2 g/dl (32.0-36.5); MEAN CORPUSCULAR VOLUME 88.6 fl (80.0-96.0); MONO # 0.5 K/mm3 (0.0-0.8); MONO % 5.5 % (0.0-5.0); NEUTROPHILS # 5.4 K/mm3 (1.8-7.7); NEUTROPHILS % 66.6 % (36.0-66.0); PLATELET COUNT, AUTOMATED 303 k/mm3 (150-450); RED CELL DISTRIBUTION WIDTH 13.7 % (11.5-14.5)
== END ==
LOC: M SFHCCAPE 10:01 → M LABDRAWC 11:14
PROVIDERS: ATTEND Physician Assistant
DX: F32.2 Major depressive disorder, single episode, severe without psychotic features (principal)

== ENCOUNTER → 2017-04-09 | Outpatient (REF) | payer OTHER ==
[2017-04-09 17:01] LABS: FREE T4 1.13 NG/DL (0.76-1.46)
[2017-04-12 00:06] LABS: Lyme Disease IgG/IgM Antibodie <0.91 ISR (0.00-0.90); Lyme Disease IgM Ab Quantitati <0.80 index (0.00-0.79)
== END ==
LOC: M SFHCCAPE 12:00 → M SFHCCLAY 12:50
PROVIDERS: ATTEND Physician Assistant
DX: G43.719 Chronic migraine without aura, intractable, without status migrainosus (principal)

== ENCOUNTER → 2017-04-29 | Outpatient (REF) | payer OTHER | LOC: M LAB REF 13:48 | PROVIDERS: ATTEND Physician Assistant | DX: J02.9 Acute pharyngitis, unspecified (principal) ==

== ENCOUNTER → 2017-05-21 | Outpatient (REF) | payer OTHER ==
[2017-05-21 22:05] LABS: FREE T4 1.27 NG/DL (0.76-1.46)
== END ==
LOC: M SFHCCAPE 10:26
PROVIDERS: ATTEND Physician Assistant
DX: R94.6 Abnormal results of thyroid function studies (principal)

== ENCOUNTER 2017-07-30 16:13 | Emergency (ER) | payer OTHER ==
[~2017-07-30] VITALS: Ht 157.5 cm; Wt 68.7 kg
[~2017-07-30 16:13] MED LIST changes: -ZOLO100T PO; -ZONI100C2 PO
[2017-07-30 16:14] VITALS: BP 134/80
[2017-07-30] MEDS ORDERED: ZONI100C2 PO (16:31)
[2017-07-30] MEDS ORDERED: ZOLO100T PO (16:31)
== END 2017-07-30 16:59 | disposition left against medical advice (07) ==
LOC: M ED 16:13
DX: Z53.21 Procedure and treatment not carried out due to patient leaving prior to being seen by health care provider (principal)

== ENCOUNTER → 2017-07-30 | Outpatient (CLI) | payer OTHER ==
[~2017-07-30] MED LIST changes: +ZOLO100T PO; +ZONI100C2 PO
--- NOTE | 2017-07-30 15:51 | REP ---
Lumbar spine complete: 07/30/2017. Clinical history: Thrown off horse, trauma. Back pain, contusion. Five views are provided. There were no prior studies. The lateral view shows straightening of the spine which may reflect some spasm. AP view shows pedicles, spinous and transverse processes all intact. Lower thoracic levels and visualized ribs intact. Visualized sacral ala and foramina and those portions of SI joints and iliac wings included were unremarkable. I see no spondylolysis or spondylolisthesis or facet arthropathy. There is a subtle sharp angled contour deformity of the fourth sacral segment that may reflect old trauma or acute fracture. Impression: 1. Straightening of the spine that may reflect spasm in the lumbar region. No disc space narrowing, compression deformity, spondylolysis or spondylolisthesis. 2. Contour deformity of the anterior aspect of the S4 sacral segment on the lateral view and coned lateral. Could not exclude acute versus chronic fracture. Remainder of the sacral segments and coccyx appear unremarkable on the lateral view. CT recommended. Signed by Charles Brandon MD 07/31/2017 08:14 P
== END ==
LOC: M WUC 14:55
PROVIDERS: ATTEND Physician Assistant
DX: S30.0XXA Contusion of lower back and pelvis, initial encounter (principal); X58.XXXA Exposure to other specified factors, initial encounter; Y92.89 Other specified places as the place of occurrence of the external cause; Y93.9 Activity, unspecified

== ENCOUNTER → 2017-09-11 | Outpatient (CLI) | payer OTHER | LOC: M CLY 15:08 | DX: R05 Cough (principal) | CPT/HCPCS: 71046 ==

== ENCOUNTER 2017-10-14 00:27 | Emergency (ER) | payer OTHER ==
[2017-10-14] MEDS: ONDANSETRON 4 MG ORAL DISINTEGRATING TAB (S0181) PO (00:39)
== END 2017-10-14 01:17 | disposition home or self-care (01) ==
LOC: M ED 00:27
DX: A08.4 Viral intestinal infection, unspecified (principal); Z79.899 Other long term (current) drug therapy; Z88.1 Allergy status to other antibiotic agents
CPT/HCPCS: 99283

== ENCOUNTER → 2017-10-17 | Outpatient (REF) | payer OTHER | LOC: M SFHCCAPE 15:39 | DX: R30.0 Dysuria (principal) ==

== ENCOUNTER → 2017-12-10 | Outpatient (REF) | payer OTHER ==
[2017-12-11 17:13] LABS: FREE T4 1.21 NG/DL (0.76-1.46); HCG, SERUM QUANTITATIVE < 1.0 MIU/ML
[2017-12-12 08:58] LABS: CONTROL LINE HCG INT CTR LINE PRESENT; HCG, SERUM QUALITATIVE NEGATIVE (NEGATIVE)
== END ==
LOC: M SFHCCAPE 16:31
DX: N91.2 Amenorrhea, unspecified (principal)

== ENCOUNTER → 2017-12-17 | Outpatient (REF) | payer OTHER | LOC: M SFHCCAPE 10:18 | DX: N91.2 Amenorrhea, unspecified (principal); Z01.419 Encounter for gynecological examination (general) (routine) without abnormal findings | CPT/HCPCS: 87070 ==

== ENCOUNTER → 2017-12-24 | Outpatient (CLI) | payer OTHER | LOC: M RAD 14:00 | DX: R10.2 Pelvic and perineal pain (principal) ==

== ENCOUNTER → 2017-12-25 | Outpatient (REF) | payer OTHER ==
[2017-12-26 23:29] LABS: CHLAMYDIA DNA AMPLIFICATION NEGATIVE (NEGATIVE); GC DNA AMPLIFICATION NEGATIVE (NEGATIVE)
== END ==
LOC: M SFHCCAPE 15:56
DX: R10.9 Unspecified abdominal pain (principal); R10.2 Pelvic and perineal pain

== ENCOUNTER → 2017-12-27 | Outpatient (CLI) | payer OTHER ==
[2017-12-27 18:40] LABS: BASO # 0.1 10^3/uL (0.0-0.2); BASO % 0.8 % (0.0-1.0); EOS # 0.2 10^3/uL (0.0-0.50); EOS % 3.2 % (0.0-3.0); HEMATOCRIT 37.1 % (36.0-47.0); HEMOGLOBIN 12.8 g/dl (12.0-15.5); IMMATURE GRANULOCYTE % 0.2 % (0-3.0); LYMPH # 2.7 10^3/uL (1.5-6.5); LYMPH % 41.6 % (24.0-44.0); MEAN CORPUSCULAR HEMOGLOBIN 29.5 pg (27.0-33.0); MEAN CORPUSCULAR HGB CONC 34.5 g/dl (32.0-36.5); MEAN CORPUSCULAR VOLUME 85.5 fl (80.0-96.0); MONO # 0.4 10^3/uL (0.0-0.8); MONO % 6.5 % (0.0-5.0); NEUTROPHILS # 3.2 10^3/uL (1.8-7.7); NEUTROPHILS % 47.7 % (36.0-66.0); PLATELET COUNT, AUTOMATED 294 10^3/uL (150-450); RED BLOOD COUNT 4.34 10^6/uL (4.00-5.40); RED CELL DISTRIBUTION WIDTH 12.9 % (11.5-14.5); WHITE BLOOD COUNT 6.6 10^3/uL (4.0-10.0)
[2017-12-27 19:09] LABS: ALBUMIN 3.8 GM/DL (3.2-5.2); ALBUMIN/GLOBULIN RATIO 1.23 (1.00-1.93); ALKALINE PHOSPHATASE 95 U/L (45-117); ALT/SGPT 19 U/L (12-78); ANION GAP 5 MEQ/L (8-16); AST/SGOT 18 U/L (7-37); BILIRUBIN,TOTAL 0.4 MG/DL (0.2-1.0); BLOOD UREA NITROGEN 12 MG/DL (7-18); CALCIUM LEVEL 8.4 MG/DL (8.5-10.1); CARBON DIOXIDE LEVEL 28 MEQ/L (21-32); CHLORIDE LEVEL 109 MEQ/L (98-107); CREATININE FOR GFR 0.98 MG/DL (0.55-1.30); GLOMERULAR FILTRATION RATE > 60.0 (>60); GLUCOSE, FASTING 87 MG/DL (70-100); LIPASE 122 U/L (73-393); POTASSIUM SERUM 3.7 MEQ/L (3.5-5.1); SODIUM LEVEL 142 MEQ/L (136-145); TOTAL PROTEIN 6.9 GM/DL (6.4-8.2)
[2017-12-27 19:11] LABS: PROLACTIN 12.8 NG/ML; TESTOSTERONE 29 NG/DL (14-76)
[2017-12-27 19:12] LABS: FOLLICLE STIMULATING HORMONE 5.3 mIU/mL; LUTEINIZING HORMONE 7.2 mIU/mL
[2017-12-27 19:22] LABS: ERYTHROCYTE SEDIMENTATION RATE 6 mm/hr (0-20)
== END ==
LOC: M WUC 14:48
DX: N91.2 Amenorrhea, unspecified (principal)
CPT/HCPCS: 83001

== ENCOUNTER → 2017-12-31 | Outpatient (CLI) | payer OTHER ==
[~2017-12-31] MED LIST changes: -ACET50TA PO; +GASTROGRAFIN SOLUTION 30ML (Q9963) As Ordered; -IBUP-1114 PO; +ISOVUE-370 76% 100ML VIAL (Q9967) As Ordered; -PRENTAB9 PO
== END ==
LOC: M RAD 15:47
DX: R10.2 Pelvic and perineal pain (principal)
CPT/HCPCS: Q9963

== ENCOUNTER → 2018-02-15 | Outpatient (CLI) | payer OTHER ==
[2018-02-15 13:07] LABS: HEMATOCRIT 39.9 % (36.0-47.0); MEAN CORPUSCULAR HEMOGLOBIN 29.4 pg (27.0-33.0); MEAN CORPUSCULAR HGB CONC 35.1 g/dl (32.0-36.5); MEAN CORPUSCULAR VOLUME 83.8 fl (80.0-96.0); PLATELET COUNT, AUTOMATED 338 10^3/uL (150-450); RED BLOOD COUNT 4.76 10^6/uL (4.00-5.40); RED CELL DISTRIBUTION WIDTH 12.6 % (11.5-14.5); WHITE BLOOD COUNT 8.7 10^3/uL (4.0-10.0)
[2018-02-15 13:26] LABS: ALBUMIN 3.7 GM/DL (3.2-5.2); ALBUMIN/GLOBULIN RATIO 1.16 (1.00-1.93); ALKALINE PHOSPHATASE 86 U/L (45-117); ALT/SGPT 18 U/L (12-78); ANION GAP 8 MEQ/L (8-16); AST/SGOT 11 U/L (7-37); BILIRUBIN,TOTAL 0.4 MG/DL (0.2-1.0); BLOOD UREA NITROGEN 16 MG/DL (7-18); CALCIUM LEVEL 8.1 MG/DL (8.5-10.1); CARBON DIOXIDE LEVEL 25 MEQ/L (21-32); CHLORIDE LEVEL 111 MEQ/L (98-107); CREATININE FOR GFR 0.64 MG/DL (0.55-1.30); GLOMERULAR FILTRATION RATE > 60.0 (>60); GLUCOSE, FASTING 83 MG/DL (70-100); HCG, SERUM QUANTITATIVE 31 MIU/ML; POTASSIUM SERUM 3.9 MEQ/L (3.5-5.1); SODIUM LEVEL 144 MEQ/L (136-145); TOTAL PROTEIN 6.9 GM/DL (6.4-8.2)
== END ==
LOC: M SMT 11:56
DX: Z32.01 Encounter for pregnancy test, result positive (principal)
CPT/HCPCS: 80053

== ENCOUNTER → 2018-02-25 | Outpatient (CLI) | payer OTHER ==
[2018-02-25 20:25] LABS: HCG, SERUM QUANTITATIVE 1998 MIU/ML
== END ==
LOC: M SMT 13:13
DX: N91.1 Secondary amenorrhea (principal)
CPT/HCPCS: 84702

== ENCOUNTER → 2018-04-18 | Outpatient (CLI) | payer OTHER ==
[2018-04-19 10:38] LABS: BASO # 0.1 10^3/uL (0.0-0.2); BASO % 0.7 % (0.0-1.0); EOS # 0.1 10^3/uL (0.0-0.50); EOS % 0.9 % (0.0-3.0); HEMATOCRIT 38.3 % (36.0-47.0); HEMOGLOBIN 13.4 g/dl (12.0-15.5); IMMATURE GRANULOCYTE % 0.2 % (0-3.0); LYMPH # 2.7 10^3/uL (1.5-6.5); LYMPH % 27.8 % (24.0-44.0); MEAN CORPUSCULAR HEMOGLOBIN 30.1 pg (27.0-33.0); MEAN CORPUSCULAR VOLUME 86.1 fl (80.0-96.0); MONO # 0.5 10^3/uL (0.0-0.8); MONO % 5.3 % (0.0-5.0); NEUTROPHILS # 6.3 10^3/uL (1.8-7.7); NEUTROPHILS % 65.1 % (36.0-66.0); PLATELET COUNT, AUTOMATED 277 10^3/uL (150-450); RED BLOOD COUNT 4.45 10^6/uL (4.00-5.40); RED CELL DISTRIBUTION WIDTH 12.9 % (11.5-14.5); WHITE BLOOD COUNT 9.7 10^3/uL (4.0-10.0)
[2018-04-19 11:24] LABS: RUBELLA IgG QUALITATIVE IMMUNE (IMMUNE)
[2018-04-19 11:25] LABS: HBsAg Prenatal NEGATIVE (NEGATIVE)
[2018-04-19 11:52] LABS: HEPATITIS C VIRUS ABY INDEX 0.1 INDEX (<0.8)
[2018-04-19 11:53] LABS: HIV 1&2 SCREEN CENTAUR NEGATIVE (NEGATIVE)
[2018-04-19 12:16] LABS: CHLAMYDIA DNA AMPLIFICATION NEGATIVE (NEGATIVE); GC DNA AMPLIFICATION NEGATIVE (NEGATIVE)
== END ==
LOC: M SMT 13:05
DX: Z34.81 Encounter for supervision of other normal pregnancy, first trimester (principal); Z3A.10 10 weeks gestation of pregnancy
CPT/HCPCS: 86762

== ENCOUNTER 2018-05-08 09:27 | Emergency (ER) | payer OTHER ==
[2018-05-08] MEDS: NS 1,000 ML IV (10:33)
[2018-05-08] MEDS: ONDANSETRON 4MG/2ML VIAL (J2405) IV (10:33)
[2018-05-08 10:44] LABS: BASO % 0.2 % (0.0-1.0); EOS # 0.2 10^3/uL (0.0-0.50); EOS % 1.8 % (0.0-3.0); HEMOGLOBIN 14.1 g/dl (12.0-15.5); IMMATURE GRANULOCYTE % 0.5 % (0-3.0); LYMPH # 2.6 10^3/uL (1.5-6.5); LYMPH % 25.7 % (24.0-44.0); MEAN CORPUSCULAR HEMOGLOBIN 29.9 pg (27.0-33.0); MEAN CORPUSCULAR HGB CONC 35.3 g/dl (32.0-36.5); MEAN CORPUSCULAR VOLUME 84.9 fl (80.0-96.0); MONO # 0.4 10^3/uL (0.0-0.8); MONO % 4.2 % (0.0-5.0); NEUTROPHILS # 6.9 10^3/uL (1.8-7.7); NEUTROPHILS % 67.6 % (36.0-66.0); PLATELET COUNT, AUTOMATED 279 10^3/uL (150-450); RED BLOOD COUNT 4.71 10^6/uL (4.00-5.40); RED CELL DISTRIBUTION WIDTH 12.9 % (11.5-14.5); WHITE BLOOD COUNT 10.3 10^3/uL (4.0-10.0)
[2018-05-08 10:48] LABS: KETONE, URINE AUTO RFX 1+ mg/dL (NEGATIVE); LEUKOCYTE ESTERASE UR AUTO RFX 2+ (NEGATIVE); MUCUS, URINE RFX LARGE (NEGATIVE); NITRITE, URINE AUTO RFX NEGATIVE (NEGATIVE); RBC, URINE AUTO RFX 2 /HPF (0-3); SPECIFIC GRAVITY UR AUTO RFX 1.028 (1.002-1.035); SQUAM EPITHELIAL CELL UR AURFX 15 /HPF (0-6); WBC, URINE AUTO RFX 14 /HPF (0-3)
[2018-05-08 11:09] LABS: ALBUMIN 3.6 GM/DL (3.2-5.2); ALBUMIN/GLOBULIN RATIO 0.86 (1.00-1.93); ALKALINE PHOSPHATASE 79 U/L (45-117); ALT/SGPT 21 U/L (12-78); ANION GAP 6 MEQ/L (8-16); AST/SGOT 13 U/L (7-37); BILIRUBIN,DIRECT 0.2 MG/DL (0.0-0.2); BILIRUBIN,TOTAL 0.6 MG/DL (0.2-1.0); BLOOD UREA NITROGEN 8 MG/DL (7-18); CALCIUM LEVEL 8.9 MG/DL (8.5-10.1); CARBON DIOXIDE LEVEL 26 MEQ/L (21-32); CHLORIDE LEVEL 105 MEQ/L (98-107); CREATININE FOR GFR 0.61 MG/DL (0.55-1.30); GLOMERULAR FILTRATION RATE > 60.0 (>60); GLUCOSE, FASTING 78 MG/DL (70-100); LIPASE 107 U/L (73-393); POTASSIUM SERUM 3.5 MEQ/L (3.5-5.1); SODIUM LEVEL 137 MEQ/L (136-145); TOTAL PROTEIN 7.8 GM/DL (6.4-8.2)
== END 2018-05-08 11:53 | disposition home or self-care (01) ==
LOC: M ED 09:27
DX: O21.0 Mild hyperemesis gravidarum (principal); O99.281 Endocrine, nutritional and metabolic diseases complicating pregnancy, first trimester; O26.891 Other specified pregnancy related conditions, first trimester; O99.341 Other mental disorders complicating pregnancy, first trimester; O99.511 Diseases of the respiratory system complicating pregnancy, first trimester; Z3A.15 15 weeks gestation of pregnancy; Z79.899 Other long term (current) drug therapy; Z88.8 Allergy status to other drugs, medicaments and biological substances
CPT/HCPCS: J2405

== ENCOUNTER → 2018-06-08 | Outpatient (REF) | payer OTHER | LOC: M LAB REF 10:43 | DX: R35.0 Frequency of micturition (principal) | CPT/HCPCS: 87086 ==

== ENCOUNTER → 2018-06-10 | Outpatient (CLI) | payer OTHER | LOC: M SMT 09:31 | DX: Z34.82 Encounter for supervision of other normal pregnancy, second trimester (principal) ==

== ENCOUNTER → 2018-07-24 | Outpatient (REF) | payer OTHER | LOC: M SFHCCAPE 13:42 | DX: J01.90 Acute sinusitis, unspecified (principal) | CPT/HCPCS: 87070 ==

== ENCOUNTER → 2018-08-01 | Outpatient (CLI) | payer OTHER ==
[2018-08-01 13:31] LABS: HEMOGLOBIN 11.8 g/dl (12.0-15.5); MEAN CORPUSCULAR HEMOGLOBIN 30.6 pg (27.0-33.0); MEAN CORPUSCULAR HGB CONC 34.7 g/dl (32.0-36.5); MEAN CORPUSCULAR VOLUME 88.1 fl (80.0-96.0); PLATELET COUNT, AUTOMATED 307 10^3/uL (150-450); RED BLOOD COUNT 3.86 10^6/uL (4.00-5.40); RED CELL DISTRIBUTION WIDTH 12.7 % (11.5-14.5); WHITE BLOOD COUNT 12.7 10^3/uL (4.0-10.0)
[2018-08-01 13:49] LABS: GLUCOSE CHALLENGE TEST 1 HOUR 86 MG/DL (LESS THAN 140)
== END ==
LOC: M SMT 08:17
DX: Z34.82 Encounter for supervision of other normal pregnancy, second trimester (principal); Z36.89 Encounter for other specified antenatal screening
CPT/HCPCS: 82950

== ENCOUNTER → 2018-10-03 | Outpatient (REF) | payer OTHER ==
[~2018-10-03] MED LIST changes: -GASTROGRAFIN SOLUTION 30ML (Q9963) As Ordered; +IBUP-1114 PO; +IMOD2CAP PO; -ISOVUE-370 76% 100ML VIAL (Q9967) As Ordered; +MAPA500T2 PO; +PRENTAB9 PO; +REGL10TA6 PO; +ZOFR4TAB14 PO; +ZOLO100T PO; +ZONI100C2 PO
== END ==
LOC: M LAB REF 13:14
PROVIDERS: ATTEND Obstetrics & Gynecology
DX: Z34.83 Encounter for supervision of other normal pregnancy, third trimester (principal); Z3A.00 Weeks of gestation of pregnancy not specified

== ENCOUNTER 2018-10-10 12:31 | Inpatient (IN) | payer OTHER ==
[2018-10-10] VITALS (24 sets, daily range): BP systolic 100–155; BP diastolic 55–100
[~2018-10-10] VITALS: Ht 157.5 cm; Wt 95.4 kg
[2018-10-10] MEDS ORDERED: LACTATED RINGER'S 1000 ML IV STA (13:52)
[2018-10-10] MEDS ORDERED: LR 1,000 ML IV SCH (13:52)
[2018-10-10 15:18] LABS: HEMATOCRIT 32.7 % (36.0-47.0); HEMOGLOBIN 10.9 g/dl (12.0-15.5); MEAN CORPUSCULAR HEMOGLOBIN 26.7 pg (27.0-33.0); MEAN CORPUSCULAR HGB CONC 33.3 g/dl (32.0-36.5); PLATELET COUNT, AUTOMATED 301 10^3/uL (150-450); RED BLOOD COUNT 4.09 10^6/uL (4.00-5.40); WHITE BLOOD COUNT 9.4 10^3/uL (4.0-10.0)
[2018-10-10 15:38] LABS: TOTAL PROTEIN,RANDOM URINE 27.6 MG/DL (0.0-12.0)
[2018-10-10 15:47] LABS: ALT/SGPT 14 U/L (12-78); BILIRUBIN,TOTAL 0.4 MG/DL (0.2-1.0); CREATININE FOR GFR 0.58 MG/DL (0.55-1.30); GLOMERULAR FILTRATION RATE > 60.0 (>60); LDH LACTATE DEHYDROGENASE 179 U/L (84-246); URIC ACID 4.5 MG/DL (2.6-6.0)
--- NOTE | 2018-10-10 16:15 | NUR ---
L&D H&P HPI: 22 year old at 37+3 weeks estimated gestation. Expected date of confinement: 10/28/18. dated by a first TM US at 10 weeks. Presented to office today complaining of ongoing/chronic POWELL's that are worsening in intensity. Also noted to have elevated BP. BPs have been normotensive until today's appointment. Denies vaginal bleeding, loss of fluid, or uterine contractions. Reports regular movement. Denies visual changes, RUQ pain, sob, cp. course c/b: Depression controlled with Zoloft 150mg daily. Reports h/o CHTN (no antihypertensives) labs: Blood type A+, antibody screen negative, rubella immune, VDRL nonreactive , hepatitis B surface antigen negative, HIV negative, hepatitis C antibody negative, GC/CT negative, aneuploidy/maternal serum screening: not done, 1 hour glucose challenge test: 86, GBS negative Radiology/OB US: no anomalies or placental abnormalities detected. History Past medical history: CHTN, depression Surgical history: T&A Medications: PNV, Zoloft 150mg daily Allergies: amitriptyline, sumatriptan GEOCHEMIST history: no t/e/d OB history: May 2016, at 41+2 weeks, 8lbs 7oz. Social history: no t/e/d Family history: no MR, VTE Objective Vitals: 152/80, 144/88, (in office), normal heart rate, afebrile Heart: Regular rate and rhythm. No murmurs, rubs or gallops. Lungs: Clear to auscultation bilaterally. No wheezes, crackles, rales or rhonchi. Abdomen: Uterine fundal height consistent with dates. No guarding or rebound tenderness. Extremities: No clubbing, cyanosis or edema. Normal deep tendon reflexes. Sterile vaginal exam: 1-2 cm, 50 %effacement, -3 station, cephalic, intact External monitoring: heart rate category 1 Tocodynamometer: contractions occurring intermittently Assessment/Plan 22 year old at 37+3 weeks gestation. Diagnosis: pre-eclampsia. Reassuring and maternal status. -Admit to labor and delivery with routine labs and orders -External monitoring and tocodynamometer -Pediatrics and anesthesia consultations as needed. -Start with cervical ripening; misoprostol 50mcg SL q4-6h PRN. Dr. Alexander Del Rosario, DO, FACOG
[2018-10-10] MEDS: miSOPROStol 50 MCG 1/2 TAB (S0191) SL SCH ×2 (16:18→20:27)
--- NOTE | 2018-10-10 20:26 | NUR ---
Labor progress note Subjective: Patient starting to feel more uncomfortable with contractions. Contractions are occurring more frequently. Denies any loss of fluid or vaginal bleeding. No complaints of headache, visual changes, nausea, vomiting, shortness of breath or chest pain. Objective: Vitals: currently normotensive Sterile vaginal exam: 3cm/75%/-3; cephalic, intact External monitoring: Cat I Tocodynamometer: ctxs every 2-5min Assessment / Plan: Latent labor/Favorable cervix. Reassuring maternal and status. -Start José Luis Del Rosario DO
[2018-10-10] MEDS ORDERED: OXYTOCIN DRIP 30 UNITS in APPROPRIATE DILUENT 1 EA IV SCH (20:45)
[2018-10-10] MEDS ORDERED: FENTANYL 2MCG/ML ROPIVACAINE 0.2% IN 0.9% NACL 100ML IVBAG As Ordered ONE (21:52)
[2018-10-11] VITALS (9 sets, daily range): BP systolic 104–134; BP diastolic 53–78
[2018-10-11] MEDS: miSOPROStol 50 MCG 1/2 TAB (S0191) SL SCH
[2018-10-11] MEDS ORDERED: diphenhydrAMINE INJ 50MG/ML VIAL (J1200) IV PRN (01:00)
[2018-10-11] MEDS ORDERED: FENTANYL/ROPIVACAINE/NACL BAG 100 ML EPIDURAL SCH (01:00)
[2018-10-11] MEDS ORDERED: ePHEDrine SULFATE 25 MG/5 ML(5MG/ML) SYRINGE IV PRN (01:00)
[2018-10-11] MEDS ORDERED: NALOXONE INJ 0.4 MG/1 ML VIAL (J2310) IV PRN (01:00)
[2018-10-11] MEDS ORDERED: LACTATED RINGER'S 1000 ML IV PRN (01:00)
[2018-10-11] MEDS ORDERED: EPIDURAL/PCA KEYS XX PRN (01:00)
[2018-10-11] MEDS ORDERED: EPIDURAL COMMENT XX SCH (01:00)
[2018-10-11] MEDS ORDERED: REFRIGERATOR IV KEYS XX PRN (01:00)
[2018-10-11] MEDS ORDERED: ONDANSETRON 4MG/2ML VIAL (J2405) IV PRN ×2 (01:00→04:30)
--- NOTE | 2018-10-11 02:11 | NUR ---
Labor progress note Subjective: Patient starting to feel more uncomfortable with contractions. Contractions are occurring more frequently. Denies any loss of fluid or vaginal bleeding. No complaints of headache, visual changes, nausea, vomiting, shortness of breath or chest pain. Objective: Vitals: currently normotensive Sterile vaginal exam: 5cm/90%/-1; cephalic, intact External monitoring: Cat I Tocodynamometer: ctxs every 2-5min; Pit at 10mU/min Assessment / Plan: Active labor. Reassuring maternal and status. -Continue José Luis Del Rosario, DO
--- NOTE | 2018-10-11 02:12 | NUR ---
Progress Note Addendum Pt states she is getting pain relief with epidural in place. Thelma Del Rosario, DO
[2018-10-11] MEDS ORDERED: LR 1,000 ML IV SCH (04:16)
[2018-10-11] MEDS ORDERED: OXYTOCIN DRIP 30 UNITS in APPROPRIATE DILUENT 1 EA IV SCH (04:16)
--- NOTE | 2018-10-11 04:16 | NUR ---
Delivery note Spontaneous vaginal delivery Estimated gestational age at delivery: 37+3 weeks The active phase and second stage of labor progressed in normal fashion with epidural anesthesia. Patient received Pitocin labor augmentation. GBS neg. FHR reassuring throughout labor. The head delivered left occiput anterior and restituted left occiput transverse. No nuchal cord was noted. The anterior shoulder delivered with gentle downward guidance and the remainder of the body delivered with ease. Cord clamping was delayed for approximately 1 minute after delivery. After doubly clamping the cord, I cut the cord. The was placed on the patient's chest for immediate bonding. data: Apgars 9 and 9. weight 3150 grams 6 pounds, 15 ounces. Time of delivery: 0354. Sex: Male. The third stage of labor was actively managed with a bolus of IV Pitocin (30 units in 500 mL of normal saline). The placenta delivered completely intact with no missing cotyledons at 0358. A three-vessel cord with a central insertion was noted. After delivery of the placenta, the uterine fundus was approximately 2 cm below the umbilicus and firm. IV Pitocin was continued to maintain uterine tone. A normal, low level of uterine bleeding was noted. The cervix, vagina, vulva and perineum were inspected for lacerations. A first degree laceration was noted. This was repaired with 3-0 Vicryl in typical fashio n. Excellent hemostasis was noted. Estimated blood loss: 200ml. All sponges, needles, and instruments were accounted for per EDUCATION ANALYST department protocol. Alexander Del Rosario D.O., F.A.C.OLeida.
[2018-10-11] MEDS ORDERED: DOCUSATE SODIUM 100 MG CAP PO PRN (04:30)
[2018-10-11] MEDS ORDERED: DIBUCAINE 1% OINTMENT 30GM TOP PRN (04:30)
[2018-10-11] MEDS ORDERED: RHOGAM 300 MCG (1500 IU) INJ (J2790) IM SCH (04:30)
[2018-10-11] MEDS ORDERED: IBUPROFEN 800 MG TAB PO PRN (04:30)
[2018-10-11] MEDS ORDERED: ACETAMINOPHEN 500 MG TAB PO PRN (04:30)
[2018-10-11] MEDS ORDERED: MEASLES,MUMPS,RUBELLA VACCINE INJ (MMR-II) (90707) SC SCH (04:30)
[2018-10-11] MEDS ORDERED: PROMETHAZINE 25 MG TAB PO PRN (04:30)
[2018-10-11] MEDS: PRENATAL VITAMINS CHEWABLE TABLET PO SCH (10:37)
[2018-10-11] MEDS: SERTRALINE HCL 50 MG TAB PO SCH (11:18)
[2018-10-12 06:32] VITALS: BP 155/98
[2018-10-12 06:46] VITALS: BP 130/70
[2018-10-12] MEDS: SERTRALINE HCL 50 MG TAB PO SCH (08:23)
[2018-10-12] MEDS: PRENATAL VITAMINS CHEWABLE TABLET PO SCH (08:23)
[2018-10-12] MEDS ORDERED: MOTR200T44 PO (08:35)
== END 2018-10-12 15:25 | disposition home or self-care (01) | DRG 807 ==
LOC: M LDI 12:31 → M OBS 10-11 06:21
PROVIDERS: ADMIT Obstetrics & Gynecology; ATTEND Obstetrics & Gynecology
PROC: 3E0P7GC Introduction of Other Therapeutic Substance into Female Reproductive, Via Natural or Artificial Opening (ICD-10-PCS; 2018-10-10)
PROC: 10E0XZZ Delivery of Products of Conception, External Approach (ICD-10-PCS; principal; 2018-10-11)
PROC: 0HQ9XZZ Repair Perineum Skin, External Approach (ICD-10-PCS; 2018-10-11)
DX: O14.04 Mild to moderate pre-eclampsia, complicating childbirth (principal); Z37.0 Single live birth; Z3A.37 37 weeks gestation of pregnancy; O99.344 Other mental disorders complicating childbirth; F32.9 Major depressive disorder, single episode, unspecified; O70.0 First degree perineal laceration during delivery

== ENCOUNTER → 2018-11-07 | Outpatient (REF) | payer OTHER ==
[~2018-11-07] MED LIST changes: +MOTR200T44 PO
[2018-11-07 13:16] LABS: BASO % 0.5 % (0.0-1.0); EOS # 0.2 10^3/uL (0.0-0.50); EOS % 1.9 % (0.0-3.0); HEMATOCRIT 42.7 % (36.0-47.0); HEMOGLOBIN 13.7 g/dl (12.0-15.5); LYMPH # 3.3 10^3/uL (1.5-6.5); MEAN CORPUSCULAR HEMOGLOBIN 25.4 pg (27.0-33.0); MEAN CORPUSCULAR HGB CONC 32.1 g/dl (32.0-36.5); MEAN CORPUSCULAR VOLUME 79.2 fl (80.0-96.0); MONO # 0.4 10^3/uL (0.0-0.8); MONO % 5.1 % (0.0-5.0); NEUTROPHILS # 4.7 10^3/uL (1.8-7.7); NEUTROPHILS % 54.3 % (36.0-66.0); PLATELET COUNT, AUTOMATED 346 10^3/uL (150-450); RED BLOOD COUNT 5.39 10^6/uL (4.00-5.40); WHITE BLOOD COUNT 8.6 10^3/uL (4.0-10.0)
[2018-11-07 13:55] LABS: ALBUMIN 4.2 GM/DL (3.2-5.2); ALT/SGPT 18 U/L (12-78); BILIRUBIN,TOTAL 0.4 MG/DL (0.2-1.0); BLOOD UREA NITROGEN 11 MG/DL (7-18); CALCIUM LEVEL 8.8 MG/DL (8.5-10.1); CARBON DIOXIDE LEVEL 26 MEQ/L (21-32); CHLORIDE LEVEL 106 MEQ/L (98-107); CREATININE FOR GFR 0.88 MG/DL (0.55-1.30); FREE T4 1.09 NG/DL (0.76-1.46); GLOMERULAR FILTRATION RATE > 60.0 (>60); GLUCOSE, FASTING 69 MG/DL (70-100); POTASSIUM SERUM 4.4 MEQ/L (3.5-5.1); SODIUM LEVEL 141 MEQ/L (136-145); THYROID STIMULATING HORMONE 0.463 uIU/ML (0.358-3.740); TOTAL PROTEIN 7.6 GM/DL (6.4-8.2)
[2018-11-09 00:06] LABS: ANA (HEP2) Negative (.)
== END ==
LOC: M SFHCCLAY 10:11
PROVIDERS: ATTEND Nurse Practitioner Family
DX: L50.9 Urticaria, unspecified (principal); G43.809 Other migraine, not intractable, without status migrainosus

== ENCOUNTER → 2018-12-26 | Outpatient (CLI) | payer OTHER ==
[2018-12-26 13:47] LABS: BASO # 0.1 10^3/uL (0.0-0.2); BASO % 0.5 % (0.0-1.0); EOS # 0.2 10^3/uL (0.0-0.50); EOS % 1.6 % (0.0-3.0); HEMATOCRIT 43.2 % (36.0-47.0); HEMOGLOBIN 14.1 g/dl (12.0-15.5); LYMPH # 3.1 10^3/uL (1.5-6.5); MEAN CORPUSCULAR HGB CONC 32.6 g/dl (32.0-36.5); MEAN CORPUSCULAR VOLUME 82.8 fl (80.0-96.0); MONO # 0.5 10^3/uL (0.0-0.8); MONO % 4.7 % (0.0-5.0); NEUTROPHILS # 6.1 10^3/uL (1.8-7.7); PLATELET COUNT, AUTOMATED 338 10^3/uL (150-450); RED BLOOD COUNT 5.22 10^6/uL (4.00-5.40); WHITE BLOOD COUNT 9.9 10^3/uL (4.0-10.0)
[2018-12-26 14:02] LABS: ALBUMIN 3.9 GM/DL (3.2-5.2); ALT/SGPT 14 U/L (12-78); BILIRUBIN,TOTAL 0.4 MG/DL (0.2-1.0); BLOOD UREA NITROGEN 15 MG/DL (7-18); CARBON DIOXIDE LEVEL 31 MEQ/L (21-32); CHLORIDE LEVEL 108 MEQ/L (98-107); GLOMERULAR FILTRATION RATE > 60.0 (>60); GLUCOSE, FASTING 75 MG/DL (70-100); POTASSIUM SERUM 4.3 MEQ/L (3.5-5.1); RHEUMATOID FACTOR QUANT < 10.0 IU/ML (<15.0); SODIUM LEVEL 143 MEQ/L (136-145); THYROID STIMULATING HORMONE 0.864 uIU/ML (0.358-3.740); THYROXINE (T4) 10.2 UG/DL (4.5-12.0); TOTAL T3 98.7 NG/DL (60.0-181.0)
[2018-12-26 14:47] LABS: ERYTHROCYTE SEDIMENTATION RATE 7 mm/hr (0-20)
[2018-12-27 09:25] LABS: THYROGLOBULIN ANTIBODY 32.3 U/ML (<60.0); THYROID PEROXIDASE ANTIBODY < 28.0 U/ML (<60.0)
== END ==
LOC: M SMT 10:06
PROVIDERS: ATTEND Allergy & Immunology Allergy
DX: L50.1 Idiopathic urticaria (principal); L50.3 Dermatographic urticaria

== ENCOUNTER → 2019-02-13 | Outpatient (CLI) | payer OTHER ==
--- NOTE | 2019-02-13 19:46 | REP ---
Lumbar spine series: Three views. History: Rib and back injury. Comparison study: July 30, 2017. Findings: Lumbar vertebral body heights are preserved. Alignment is normal. There is mild disc space narrowing at L4-5. Pedicles and posterior elements are intact. Psoas margins are symmetric. No sacral fracture is seen. Impression: No traumatic abnormality noted. Electronically Signed by Caleb Marmolejo MD 02/13/2019 07:38 P
--- NOTE | 2019-02-13 19:47 | REP ---
Thoracic spine series: Two views. History: Rib and back pain. Findings: Thoracic vertebral body heights are preserved and alignment is normal. Pedicles and posterior elements are intact. No fracture or collapse is seen. No paravertebral soft-tissue mass or swelling is seen. Impression: Negative radiographs of the thoracic spine. Electronically Signed by Caleb Marmolejo MD 02/13/2019 07:39 P
--- NOTE | 2019-02-13 19:48 | REP ---
Left rib series: Six views including PA chest. History: Back injury. Comparison study: September 11, 2017. Findings: PA chest radiograph is normal. There is no evidence of pneumothorax or hydrothorax. Mediastinum is not widened. Heart size is normal. Lung garcia are clear. Multiple views of the left rib cage demonstrate no evidence of rib fracture or bony destructive lesion. Impression: Negative left rib radiographs. Electronically Signed by Caleb Marmolejo MD 02/13/2019 07:40 P
== END ==
LOC: M WUC 19:12
PROVIDERS: ATTEND Physician Assistant
DX: S20.212D Contusion of left front wall of thorax, subsequent encounter (principal); S30.0XXD Contusion of lower back and pelvis, subsequent encounter; X58.XXXD Exposure to other specified factors, subsequent encounter

== ENCOUNTER → 2019-04-17 | Outpatient (REF) | payer OTHER ==
[~2019-04-17] MED LIST changes: +CETI10CH PO; +ZONI100C17 PO; -ZONI100C2 PO
[2019-04-17 11:24] LABS: BASO # 0.1 10^3/uL (0.0-0.2); BASO % 0.7 % (0.0-1.0); EOS # 0.2 10^3/uL (0.0-0.50); EOS % 2.2 % (0.0-3.0); HEMATOCRIT 41.6 % (36.0-47.0); HEMOGLOBIN 13.8 g/dl (12.0-15.5); LYMPH # 2.6 10^3/uL (1.5-6.5); LYMPH % 34.6 % (24.0-44.0); MEAN CORPUSCULAR HEMOGLOBIN 27.5 pg (27.0-33.0); MEAN CORPUSCULAR HGB CONC 33.2 g/dl (32.0-36.5); MEAN CORPUSCULAR VOLUME 82.9 fl (80.0-96.0); MONO # 0.4 10^3/uL (0.0-0.8); NEUTROPHILS # 4.2 10^3/uL (1.8-7.7); NEUTROPHILS % 56.2 % (36.0-66.0); PLATELET COUNT, AUTOMATED 276 10^3/uL (150-450); RED BLOOD COUNT 5.02 10^6/uL (4.00-5.40); WHITE BLOOD COUNT 7.4 10^3/uL (4.0-10.0)
[2019-04-17 11:35] LABS: ALBUMIN 3.6 GM/DL (3.2-5.2); ALT/SGPT 19 U/L (12-78); BILIRUBIN,TOTAL 0.6 MG/DL (0.2-1.0); BLOOD UREA NITROGEN 12 MG/DL (7-18); CALCIUM LEVEL 8.9 MG/DL (8.5-10.1); CARBON DIOXIDE LEVEL 31 MEQ/L (21-32); CHLORIDE LEVEL 105 MEQ/L (98-107); CHOLESTEROL LEVEL 154 MG/DL (<200); CHOLESTEROL RISK RATIO 3.276 (<5); CREATININE FOR GFR 0.68 MG/DL (0.55-1.30); FREE T4 1.21 NG/DL (0.76-1.46); GLOMERULAR FILTRATION RATE > 60.0 (>60); GLUCOSE, FASTING 91 MG/DL (70-100); HDL CHOLESTEROL 47 MG/DL (>40); LDL CHOLESTEROL 77 MG/DL (<100); NON-HDL-C 107 MG/DL; POTASSIUM SERUM 4.3 MEQ/L (3.5-5.1); SODIUM LEVEL 141 MEQ/L (136-145); THYROID STIMULATING HORMONE 0.908 uIU/ML (0.358-3.740); TOTAL PROTEIN 6.8 GM/DL (6.4-8.2); TRIGLYCERIDES LEVEL 149 MG/DL (<150)
[2019-04-17 11:47] LABS: HEMOGLOBIN A1c 5.2 %
== END ==
LOC: M SFHCCLAY 08:44
PROVIDERS: ATTEND Nurse Practitioner Family
DX: F41.8 Other specified anxiety disorders (principal); R63.5 Abnormal weight gain; E66.01 Morbid (severe) obesity due to excess calories

== ENCOUNTER 2019-07-28 03:37 | Emergency (ER) | payer OTHER ==
[~2019-07-28] VITALS: Ht 157.5 cm; Wt 86.4 kg
[~2019-07-28 03:37] MED LIST changes: -CETI10CH PO; -ZONI100C17 PO; +ZONI100C2 PO
[2019-07-28] MEDS ORDERED: CETI10CH PO (03:44)
[2019-07-28] MEDS ORDERED: METOCLOPRAMIDE INJ 10MG/2ML VIAL (J2765) IV ONE (04:00)
[2019-07-28] MEDS ORDERED: NS 1,000 ML IV ONE (04:00)
[2019-07-28 04:41] LABS: BASO % 0.2 % (0.0-1.0); EOS # 0.1 10^3/uL (0.0-0.5); EOS % 0.7 % (0.0-3.0); HEMATOCRIT 42.3 % (36.0-47.0); HEMOGLOBIN 14.1 g/dl (12.0-15.5); LYMPH # 1.7 10^3/uL (1.5-5.0); LYMPH % 13.2 % (24.0-44.0); MEAN CORPUSCULAR HEMOGLOBIN 28.1 pg (27.0-33.0); MEAN CORPUSCULAR HGB CONC 33.3 g/dl (32.0-36.5); MEAN CORPUSCULAR VOLUME 84.4 fl (80.0-96.0); MONO # 0.5 10^3/uL (0.0-0.8); MONO % 3.9 % (0.0-5.0); NEUTROPHILS # 10.4 10^3/uL (1.5-8.5); NEUTROPHILS % 81.7 % (36.0-66.0); PLATELET COUNT, AUTOMATED 318 10^3/uL (150-450); RED BLOOD COUNT 5.01 10^6/uL (4.00-5.40); WHITE BLOOD COUNT 12.7 10^3/uL (4.0-10.0)
[2019-07-28 04:44] LABS: APPEARANCE, URINE HAZY (CLEAR); BACTERIA, URINE AUTO NEGATIVE (NEGATIVE); BILIRUBIN, URINE AUTO NEGATIVE (NEGATIVE); BLOOD, URINE BLOOD NEGATIVE (NEGATIVE); COLOR, URINE YELLOW (YELLOW); GLUCOSE, URINE (UA) AUTO NEGATIVE (NEGATIVE); KETONE, URINE AUTO TRACE mg/dL (NEGATIVE); LEUKOCYTE ESTERASE, URINE AUTO NEGATIVE (NEGATIVE); MUCUS, URINE LARGE (NEGATIVE); NITRITE, URINE AUTO NEGATIVE (NEGATIVE); PROTEIN, URINE AUTO 1+ mg/dL (NEGATIVE); RBC, URINE AUTO 2 /HPF (0-3); SPECIFIC GRAVITY URINE AUTO 1.032 (1.002-1.035); SQUAMOUS EPITHELIAL CELL UR AU 1 /HPF (0-6); UROBILINOGEN, URINE AUTO 0.2 mg/dL (0.0-2.0); WBC, URINE AUTO 2 /HPF (0-3)
[2019-07-28 05:08] LABS: HCG, SERUM QUALITATIVE NEGATIVE (NEGATIVE)
[2019-07-28 05:12] LABS: ALBUMIN 3.5 GM/DL (3.2-5.2); ALT/SGPT 22 U/L (12-78); BILIRUBIN,DIRECT 0.2 MG/DL (0.0-0.2); BILIRUBIN,TOTAL 0.6 MG/DL (0.2-1.0); BLOOD UREA NITROGEN 19 MG/DL (7-18); CALCIUM LEVEL 8.8 MG/DL (8.5-10.1); CARBON DIOXIDE LEVEL 28 MEQ/L (21-32); CHLORIDE LEVEL 107 MEQ/L (98-107); CREATININE FOR GFR 0.84 MG/DL (0.55-1.30); ETHYL ALCOHOL (ETHANOL) < 0.003 % (0.000-0.010); GLOMERULAR FILTRATION RATE > 60.0 (>60); GLUCOSE, FASTING 119 MG/DL (70-100); LIPASE 63 U/L (73-393); POTASSIUM SERUM 4.3 MEQ/L (3.5-5.1); SODIUM LEVEL 142 MEQ/L (136-145)
[2019-07-28] MEDS ORDERED: REGL10TA6 PO (06:01)
[2019-07-28 06:22] VITALS: BP 128/75
== END 2019-07-28 06:23 | disposition home or self-care (01) ==
LOC: M ED 03:37
DX: K52.9 Noninfective gastroenteritis and colitis, unspecified (principal); J45.909 Unspecified asthma, uncomplicated; F41.9 Anxiety disorder, unspecified; Z88.8 Allergy status to other drugs, medicaments and biological substances; Z79.899 Other long term (current) drug therapy
CPT/HCPCS: 80048; 80076; 81001; 83690; 84703; 85025; 87086; 96361; 96374; 99284; G0480; J2765

== ENCOUNTER 2019-07-30 06:11 | Emergency (ER) | payer OTHER ==
[~2019-07-30] VITALS: Ht 167.6 cm; Wt 86.4 kg
[~2019-07-30 06:11] MED LIST changes: +CETI10CH PO
[2019-07-30 06:45] LABS: URINE PREG TEST NEGATIVE (NEGATIVE)
[2019-07-30] MEDS ORDERED: ONDANSETRON 4MG/2ML VIAL (J2405) IV ONE (06:45)
[2019-07-30] MEDS ORDERED: NS 1,000 ML IV ONE (06:45)
[2019-07-30 07:38] LABS: BASO % 0.2 % (0.0-1.0); EOS # 0.1 10^3/uL (0.0-0.5); EOS % 1.5 % (0.0-3.0); HEMOGLOBIN 13.7 g/dl (12.0-15.5); LYMPH % 23.6 % (24.0-44.0); MEAN CORPUSCULAR HGB CONC 33.4 g/dl (32.0-36.5); MEAN CORPUSCULAR VOLUME 83.8 fl (80.0-96.0); MONO # 0.4 10^3/uL (0.0-0.8); MONO % 4.8 % (0.0-5.0); NEUTROPHILS # 5.9 10^3/uL (1.5-8.5); NEUTROPHILS % 69.5 % (36.0-66.0); PLATELET COUNT, AUTOMATED 304 10^3/uL (150-450); RED BLOOD COUNT 4.89 10^6/uL (4.00-5.40); WHITE BLOOD COUNT 8.5 10^3/uL (4.0-10.0)
--- NOTE | 2019-07-30 07:54 | REP ---
Clinical: Persistent vomiting. Technique: Single supine view of the abdomen and pelvis. Findings: Bowel gas pattern is nonspecific. No evidence for bowel obstruction or perforation. No organomegaly. No abnormal calcifications. Skeletal structures are intact. Impression: Nonspecific bowel gas pattern. Electronically Signed by Garrett Watson MD 07/30/2019 07:45 A
[2019-07-30 08:09] LABS: ALBUMIN 3.5 GM/DL (3.2-5.2); ALT/SGPT 25 U/L (12-78); BILIRUBIN,DIRECT 0.1 MG/DL (0.0-0.2); BILIRUBIN,TOTAL 0.5 MG/DL (0.2-1.0); BLOOD UREA NITROGEN 16 MG/DL (7-18); CALCIUM LEVEL 8.9 MG/DL (8.5-10.1); CARBON DIOXIDE LEVEL 28 MEQ/L (21-32); CHLORIDE LEVEL 107 MEQ/L (98-107); CREATININE FOR GFR 0.69 MG/DL (0.55-1.30); GLOMERULAR FILTRATION RATE > 60.0 (>60); GLUCOSE, FASTING 103 MG/DL (70-100); HCG, SERUM QUALITATIVE NEGATIVE (NEGATIVE); LIPASE 79 U/L (73-393); POTASSIUM SERUM 4.3 MEQ/L (3.5-5.1); SODIUM LEVEL 140 MEQ/L (136-145); TOTAL PROTEIN 6.9 GM/DL (6.4-8.2)
[2019-07-30 10:03] VITALS: BP 124/69
== END 2019-07-30 10:05 | disposition home or self-care (01) ==
LOC: M ED 06:11
DX: R10.84 Generalized abdominal pain (principal); R11.2 Nausea with vomiting, unspecified; R19.7 Diarrhea, unspecified; J45.909 Unspecified asthma, uncomplicated; Z88.8 Allergy status to other drugs, medicaments and biological substances; Z79.899 Other long term (current) drug therapy
CPT/HCPCS: 74018; 80048; 80076; 81001; 83690; 84703; 85025; 87086; 96361; 96374; 99284; J2405

== ENCOUNTER → 2019-10-02 | Outpatient (CLI) | payer OTHER ==
[~2019-10-02] MED LIST changes: +ZONI100C17 PO; -ZONI100C2 PO
[2019-10-02 12:36] LABS: BASO # 0.1 10^3/uL (0.0-0.2); BASO % 0.5 % (0.0-1.0); EOS # 0.1 10^3/uL (0.0-0.5); EOS % 0.8 % (0.0-3.0); HEMATOCRIT 43.4 % (36.0-47.0); HEMOGLOBIN 14.3 g/dl (12.0-15.5); LYMPH # 2.5 10^3/uL (1.5-5.0); LYMPH % 24.9 % (24.0-44.0); MEAN CORPUSCULAR HEMOGLOBIN 28.1 pg (27.0-33.0); MEAN CORPUSCULAR HGB CONC 32.9 g/dl (32.0-36.5); MEAN CORPUSCULAR VOLUME 85.4 fl (80.0-96.0); MONO # 0.5 10^3/uL (0.0-0.8); MONO % 5.2 % (0.0-5.0); NEUTROPHILS # 6.8 10^3/uL (1.5-8.5); NEUTROPHILS % 68.3 % (36.0-66.0); PLATELET COUNT, AUTOMATED 304 10^3/uL (150-450); RED BLOOD COUNT 5.08 10^6/uL (4.00-5.40); WHITE BLOOD COUNT 9.9 10^3/uL (4.0-10.0)
[2019-10-02 13:02] LABS: ALT/SGPT 18 U/L (12-78); BILIRUBIN,TOTAL 0.5 MG/DL (0.2-1.0); CREATININE FOR GFR 0.58 MG/DL (0.55-1.30); GLOMERULAR FILTRATION RATE > 60.0 (>60); LDH LACTATE DEHYDROGENASE 164 U/L (84-246); URIC ACID 3.1 MG/DL (2.6-6.0)
[2019-10-02 14:10] LABS: TOTAL PROTEIN,RANDOM URINE 16.7 MG/DL (0.0-12.0)
[2019-10-02 14:34] LABS: CHLAMYDIA DNA AMPLIFICATION NEGATIVE (NEGATIVE); GC DNA AMPLIFICATION NEGATIVE (NEGATIVE)
[2019-10-03 13:42] LABS: RUBELLA IgG QUALITATIVE IMMUNE (IMMUNE)
[2019-10-03 14:11] LABS: HEPATITIS C VIRUS ABY INDEX < 0.0 INDEX (<0.8)
[2019-10-03 14:12] LABS: HIV 1&2 SCREEN CENTAUR NEGATIVE (NEGATIVE)
== END ==
LOC: M PLALAB 10:18
PROVIDERS: ATTEND Obstetrics & Gynecology
DX: Z34.91 Encounter for supervision of normal pregnancy, unspecified, first trimester (principal)

== ENCOUNTER → 2019-12-15 | Outpatient (CLI) | payer OTHER ==
--- NOTE | 2019-12-16 04:35 | REP ---
Clinical: Anatomical evaluation. Comparison: None Findings: Examination demonstrates a single live intrauterine in transverse (head to maternal right) presentation. motion is identified by technologist. Placenta is noted anterior and grade zero without evidence for placenta previa or abruption. Amniotic fluid volume is normal. Cervix measures 3.5 cm in length and appears closed. No evidence for nuchal cord. Gestational age by current measurements 18 weeks 3 days with IRIS 05/14/2020 . FHR equals 160 beats per minute. BPD 3.9 cm 17 weeks 6 days HC 16.0 cm 18 weeks 6 days AC 12.6 cm 18 weeks 1 day FL 2.7 cm 18 weeks 3 days HL 2.6 cm 18 weeks 2 days HC/AC ratio 1.28 Estimated weight 233 grams ( 39th percentile). Anatomical assessment demonstrates normal structures including cranium, choroid plexus, cavum, cerebellum/posterior fossa, lungs, four-chamber heart/ventricular outflow tracts, stomach, cord insertion/three-vessel cord, kidneys/bladder, spine, and extremities. Impression: Single live intrauterine in transverse lie demonstrating appropriate estimated weight. Limited evaluation of the facial features and diaphragm. Remainder of the anatomical assessment is complete and normal.
== END ==
LOC: M WHC 08:46
PROVIDERS: ATTEND Obstetrics & Gynecology
DX: Z34.92 Encounter for supervision of normal pregnancy, unspecified, second trimester (principal)

== ENCOUNTER → 2020-01-05 | Outpatient (CLI) | payer OTHER ==
--- NOTE | 2020-01-05 20:07 | REP ---
Clinical: Anatomical evaluation. Comparison: 12/15/2019 . Findings: Examination demonstrates a single live intrauterine in transverse (head to maternal left) presentation. motion is identified by technologist. Placenta is noted anterior and grade I without evidence for placenta previa or abruption. Amniotic fluid volume is normal. Cervix measures 3.1 cm in length and appears closed. No evidence for nuchal cord. Gestational age by LMP 21 weeks 3 days with IRIS 05/14/2020 . Gestational age by current measurements 20 weeks 6 days with IRIS 05/18/2020 . FHR equals 140 beats per minute. Estimated weight a current biometrical measurements 402 grams ( 34th percentile). Anatomical assessment demonstrates normal diaphragm. Limited evaluation of the facial features again noted due to positioning and overlying hands. Impression: Single live intrauterine in transverse lie demonstrating appropriate interval growth. Continued limited evaluation of the facial features. Remainder of the anatomical assessment in conjunction with prior examination is complete and normal.
== END ==
LOC: M WHC 08:31
PROVIDERS: ATTEND Nurse Practitioner Women's Health
DX: Z34.82 Encounter for supervision of other normal pregnancy, second trimester (principal); Z3A.20 20 weeks gestation of pregnancy

== ENCOUNTER → 2020-02-05 | Outpatient (REF) | payer OTHER ==
[2020-02-05 13:12] LABS: HEMATOCRIT 34.9 % (36.0-47.0); HEMOGLOBIN 11.9 g/dl (12.0-15.5); MEAN CORPUSCULAR HEMOGLOBIN 29.4 pg (27.0-33.0); MEAN CORPUSCULAR HGB CONC 34.1 g/dl (32.0-36.5); MEAN CORPUSCULAR VOLUME 86.2 fl (80.0-96.0); PLATELET COUNT, AUTOMATED 289 10^3/uL (150-450); RED BLOOD COUNT 4.05 10^6/uL (4.00-5.40); WHITE BLOOD COUNT 9.8 10^3/uL (4.0-10.0)
== END ==
LOC: M PLALAB 09:33
PROVIDERS: ATTEND Obstetrics & Gynecology
DX: Z3A.25 25 weeks gestation of pregnancy (principal)

== ENCOUNTER → 2020-02-05 | Outpatient (CLI) | payer OTHER ==
--- NOTE | 2020-02-06 03:24 | REP ---
Clinical: Anatomical evaluation. Comparison: 01/05/2020 . Findings: Examination demonstrates a single live intrauterine in breech presentation. motion is identified by technologist. Placenta is noted anterior and grade I without evidence for placenta previa or abruption. Amniotic fluid volume is normal. Cervix measures 3.7 cm in length and appears closed. No evidence for nuchal cord. Gestational age by LMP 25 weeks 6 days with IRIS 05/14/2020 . Gestational age by current measurements 25 weeks 2 days with IRIS 05/18/2020 . FHR equals 150 beats per minute. Estimated weight 805 grams ( 29th percentile). Anatomical assessment demonstrates normal structures including cranium, facial features, lungs, four-chamber heart/ventricular outflow tracts, diaphragm, stomach, three-vessel cord, kidneys/bladder. Impression: Single live intrauterine in breech presentation demonstrating appropriate interval growth. In conjunction with prior examination anatomical assessment is complete and normal. No gross abnormalities are identified.
== END ==
LOC: M WHC 09:35
PROVIDERS: ATTEND Obstetrics & Gynecology
DX: Z36.2 Encounter for other antenatal screening follow-up (principal); Z3A.25 25 weeks gestation of pregnancy; O32.1XX0 Maternal care for breech presentation, not applicable or unspecified

== ENCOUNTER → 2020-02-23 | Outpatient (REF) | payer OTHER ==
[2020-02-23 12:45] LABS: HEMATOCRIT 34.6 % (36.0-47.0); HEMOGLOBIN 11.7 g/dl (12.0-15.5); MEAN CORPUSCULAR HEMOGLOBIN 29.3 pg (27.0-33.0); MEAN CORPUSCULAR HGB CONC 33.8 g/dl (32.0-36.5); MEAN CORPUSCULAR VOLUME 86.5 fl (80.0-96.0); PLATELET COUNT, AUTOMATED 264 10^3/uL (150-450); WHITE BLOOD COUNT 10.9 10^3/uL (4.0-10.0)
[2020-02-23 13:10] LABS: ALT/SGPT 17 U/L (12-78); BILIRUBIN,TOTAL 0.4 MG/DL (0.2-1.0); CREATININE FOR GFR 0.57 MG/DL (0.55-1.30); GLOMERULAR FILTRATION RATE > 60.0 (>60); LDH LACTATE DEHYDROGENASE 183 U/L (84-246); URIC ACID 2.9 MG/DL (2.6-6.0)
[2020-02-23 13:39] LABS: TOTAL PROTEIN,RANDOM URINE 33.9 MG/DL (0.0-12.0)
== END ==
LOC: M PLALAB 09:09
PROVIDERS: ATTEND Advanced Practice Midwife
DX: O10.912 Unspecified pre-existing hypertension complicating pregnancy, second trimester (principal); Z3A.00 Weeks of gestation of pregnancy not specified

== ENCOUNTER → 2020-03-04 | Outpatient (CLI) | payer OTHER ==
[~2020-03-04] MED LIST changes: +ACET-683 PO; +BENA25CA4 PO; +DIFL200T PO; +LABE100T36 PO; +SERT-141 PO; +ZOLO25TA PO
--- NOTE | 2020-03-04 10:19 | REP ---
REASON FOR EXAM: Hypertension Multiple ultrasonographic images of the gravid uterus show a single living intrauterine gestation in the breech presentation. Doppler interrogation of the heart shows a heart rate of 133 beats per minute. The placenta is anterior and not low lying. The subjective amniotic fluid volume is within normal limits. The cervix measures 3.1 cm in length and is closed. Evaluation of the maternal adnexal spaces showed no abnormalities. The calculated amniotic fluid index is 12.7 with an expected range of 9.0 to 23.4. BPD 5.7 cm = 30 weeks 0 days HC 27.4 cm = 30 weeks 0 days AC 25.2 cm = 29 weeks 3 days FL 5.5 cm = 29 weeks 0 days The estimated weight is 1384 grams, which is at the 30th percentile for a 77-xykv-8-day gestational age. IMPRESSION: Single living intrauterine gestation as described above with an estimated gestational age of 29 weeks 1 day via composite criteria and an estimated date of delivery 05/19/2020 by today's exam.
== END ==
LOC: M WHC 07:33
PROVIDERS: ATTEND Advanced Practice Midwife
DX: O10.912 Unspecified pre-existing hypertension complicating pregnancy, second trimester (principal); Z3A.29 29 weeks gestation of pregnancy

== ENCOUNTER → 2020-03-25 | Outpatient (CLI) | payer OTHER ==
--- NOTE | 2020-04-23 16:47 | REP ---
This report is delayed due to a malware attack on this facility. OBSTETRIC SONOGRAPHY HISTORY: growth study and amniotic fluid index (MYRNA). SONOGRAPHIC FINDINGS: Scanning demonstrates a single living intrauterine gestation in cephalic lie. The placenta is anterior grade 2 without evidence of previa or abruption. Amniotic fluid is subjectively normal. MYRNA is normal at 16.1 cm. Closed cervical length is 3.3 cm. BIOMETRY CHART: BPD 8.1 cm 32 weeks 5 days Head Circumference 29.5 cm 32 weeks 5 days Abdominal Circumference 28.6 cm 32 weeks 5 days Femur Length 6.1 cm 32 weeks 0 days Humeral length 5.6 cm 32 weeks 5 days Estimated weight 1972 grams 32nd percentile Heart Rate Recorded 132 beats per minute Estimated gestational age by todays sonography 32 weeks 4 days. SHEFALI
== END ==
LOC: M WHC 09:34
PROVIDERS: ATTEND Advanced Practice Midwife
DX: Z34.83 Encounter for supervision of other normal pregnancy, third trimester (principal); Z3A.32 32 weeks gestation of pregnancy

== ENCOUNTER → 2020-04-08 | Outpatient (REF) | payer OTHER ==
[2020-05-12 13:09] LABS: HEMATOCRIT 34.2 % (36.0-47.0); HEMOGLOBIN 11.2 g/dl (12.0-15.5); MEAN CORPUSCULAR HEMOGLOBIN 27.5 pg (27.0-33.0); MEAN CORPUSCULAR HGB CONC 32.7 g/dl (32.0-36.5); MEAN CORPUSCULAR VOLUME 83.8 fl (80.0-96.0); PLATELET COUNT, AUTOMATED 275 10^3/uL (150-450); RED BLOOD COUNT 4.08 10^6/uL (4.00-5.40); WHITE BLOOD COUNT 9.9 10^3/uL (4.0-10.0)
[2020-05-24 14:11] LABS: ALT/SGPT 20 U/L (12-78); BILIRUBIN,TOTAL 0.4 MG/DL (0.2-1.0); CREATININE FOR GFR 0.67 MG/DL (0.55-1.30); GLOMERULAR FILTRATION RATE > 60.0 (>60); LDH LACTATE DEHYDROGENASE 200 U/L (84-246); TOTAL PROTEIN,RANDOM URINE 40.3 MG/DL (0.0-12.0); URIC ACID 3.3 MG/DL (2.6-6.0)
== END ==
LOC: M SFHCWAGY 15:58
PROVIDERS: ATTEND Advanced Practice Midwife
DX: O10.013 Pre-existing essential hypertension complicating pregnancy, third trimester (principal)

== ENCOUNTER → 2020-04-15 | Outpatient (CLI) | payer OTHER ==
--- NOTE | 2020-04-23 16:48 | REP ---
OBSTETRIC SONOGRAPHY: GROWTH STUDY AND MYRNA FINDINGS: Scanning through the gravid uterus demonstrates a single living intrauterine gestation in the cephalic lie. The placenta is anterior grade 3 without evidence of previa or abruption. Amniotic fluid is subjectively normal. MYRNA is normal at 18.9 cm. Closed cervical length is measured transabdominally at 3.1 cm. heart rate is recorded at 146 beats per minute. BIOMETRY CHART: BPD 85 mm 34 weeks 3 days Head Circumference 313 mm 35 weeks 1 day Abdominal Circumference 306 mm 34 weeks 5 days Femur Length 66 mm 34 weeks 1 day Humeral Length 58 mm 34 weeks 0 days Estimated Weight 2291 g 9th Percentile IMPRESSION: Viable single intrauterine gestation at 34 weeks 2 days by todays composite criteria. Estimated weight 2291 grams. MTDD
== END ==
LOC: M WHC 09:01
PROVIDERS: ATTEND Advanced Practice Midwife
DX: O13.9 Gestational [pregnancy-induced] hypertension without significant proteinuria, unspecified trimester (principal)

== ENCOUNTER 2020-04-26 12:31 | Inpatient (IN) | payer OTHER ==
[2020-04-26] VITALS (25 sets, daily range): BP systolic 105–161; BP diastolic 59–96
[~2020-04-26] VITALS: Ht 157.5 cm; Wt 96.7 kg
[~2020-04-26 12:31] MED LIST changes: -ACET-683 PO; -BENA25CA4 PO; -DIFL200T PO; -LABE100T36 PO; -SERT-141 PO; -ZOLO25TA PO
[2020-04-26] MEDS ORDERED: LACTATED RINGER'S 1000 ML IV STA (13:09)
[2020-04-26 14:39] LABS: HEMATOCRIT 31.5 % (36.0-47.0); HEMOGLOBIN 10.3 g/dl (12.0-15.5); MEAN CORPUSCULAR HEMOGLOBIN 26.4 pg (27.0-33.0); MEAN CORPUSCULAR HGB CONC 32.7 g/dl (32.0-36.5); MEAN CORPUSCULAR VOLUME 80.8 fl (80.0-96.0); PLATELET COUNT, AUTOMATED 264 10^3/uL (150-450); WHITE BLOOD COUNT 8.4 10^3/uL (4.0-10.0)
[2020-04-26] MEDS ORDERED: miSOPROStol 50 MCG 1/2 TAB (S0191) PO SCH (15:00)
[2020-04-26 15:08] LABS: ALT/SGPT 14 U/L (12-78); BILIRUBIN,TOTAL 0.5 MG/DL (0.2-1.0); CREATININE FOR GFR 0.55 MG/DL (0.55-1.30); GLOMERULAR FILTRATION RATE > 60.0 (>60); LDH LACTATE DEHYDROGENASE 203 U/L (84-246); URIC ACID 3.2 MG/DL (2.6-6.0)
--- NOTE | 2020-04-26 15:58 | HPEPDOC ---
Obstetrical History & Physical General Date of Admission Apr 26, 2020 at 12:31 History of Present Illness Marlys is a 24 year old at 37+2 weeks presenting for scheduled admission for IOL 2/2 CHTN on labetalol. Expected date of confinement: 05/15/20. She denies vaginal bleeding, loss of fluid, or regular uterine contractions. Reports regular movement. Denies current headache, visual changes, RUQ pain, SOB, CP. course c/b: Depression controlled with Zoloft 75mg daily and CHTN on labetalol 100mg BID Chief Complaint: Induction of labor Information Provided By: Patient Care Care: Good Care Past Medical History Past Medical History Medical History History Past medical history: CHTN, depression Surgical history: T&A Medications: Zoloft 75mg daily, labetalol 100mg BID, recently took a course of diflucan for vaginal candidiasis with improvement in sx Allergies: amitriptyline, sumatriptan HOOK PULLER history: no t/e/d OB history: G1 May 2016, at 41+2 weeks, 8lbs 7oz. polydactyly, G2 Sep 2018 at 37w4d IOL for pre-E [id number] Social history: no t/e/d Family history: no MR, VTE Allergies Coded Allergies: amitriptyline (Verified Allergy, Intermediate, HIVES, 07/30/19) sumatriptan (Verified Allergy, Intermediate, HIVES, 07/30/19) Medications Scheduled Cetirizine HCl (Cetirizine HCl) 10 Mg Tab.chew, 10 MG PO QPM for allergy symptoms Scheduled PRN Acetaminophen (Mapap) 500 Mg Tab, 1,000 MG PO Q6HP PRN for PAIN Ibuprofen (Motrin Ib) 200 Mg Tab, 800 MG PO Q8HP PRN for MODERATE PAIN (PS 5-7) Metoclopramide HCl (Reglan) 10 Mg Tablet, 10 MG PO Q6H PRN for NAUSEA Physical Examination Physical Examination GENERAL: Alert and oriented times three. FETUS: fetus is vertex (VTX) by TAUS Abdomen: gravid, NTTP, soft EXTREMITIES: No edema of BLE Vital Signs/I&O Vital Signs Date Time Temp Pulse Resp B/P (MAP) Pulse Ox O2 Delivery O2 Flow Rate FiO2 04/26/20 12:54 98.6 100 16 123/74 (90) 97 Room Air Laboratory Data 24H LABS labs: Blood type A+, antibody screen negative, rubella immune, VDRL nonreactive, hepatitis B surface antigen negative, HIV negative, hepatitis C antibody negative, GC/CT negative, 1hr glucola 69, urine protein/creatinine on 04/09- 0.15, GBS negative Laboratory Tests 2 04/26/20 12:44: Serology Scanned Report Hepatitis B Testing 04/26/20 13:40: Nucleated Red Blood Cells % (auto) 0.0, Glomerular Filtration Rate > 60.0, Uric Acid 3.2, Total Bilirubin 0.5, Aspartate Amino Transf (AST/SGOT) 18, Alanine Aminotransferase (ALT/SGPT) 14, Lactate Dehydrogenase 203 CBC/BMP Laboratory Tests 04/26/20 13:40 Other Ultrasounds Patient had normal anatomy scan at 18 weeks and routine growth scans showed adequate growth until recent GS on 04/15: 2291g (9%ile) Steroid Therapy Steroid Therapy: No Vaginal Examination Dilation: 1cm Effacement: other (thick) Station: -3 Cervical Consistency: Medium Cervical Position: Posterior Presentation: Cephalic presentation Assessment Heart Rate (FHR): 120 Variability: Moderate Accelerations: Positive Decelerations: None Tocometer Contractions: No Assessment/Plan Assessment Marlys is a 24 year old at 37+2 weeks presenting for scheduled admission for IOL 2/2 CHTN on labetalol. Reassuring and maternal status. Vitals wnl, benign exam. Cat I FHRT with no regular ctx. Cephalic by TAUS. 1/thick/-3. GBS negative. course c/b: Depression controlled with Zoloft 75mg daily and CHTN on labetalol 100mg BID Plan -Admit to labor and delivery with routine labs and orders -External monitoring and tocodynamometer -Pediatrics and anesthesia consultations as needed. -Start with cervical ripening; misoprostol 50mcg PO x1, will re-eval in 4 hours -GBS negative, no abx prophylaxis needed MD Rosa Mota Katrina D MD Apr 26, 2020 15:24
[2020-04-26] MEDS ORDERED: DIFL200T PO (16:22)
[2020-04-26] MEDS ORDERED: BENA25CA4 PO (16:22)
[2020-04-26] MEDS ORDERED: LABE100T36 PO (16:22)
[2020-04-26] MEDS ORDERED: ZOLO25TA PO (16:22)
[2020-04-26] MEDS ORDERED: LR 1,000 ML IV SCH (18:36)
--- NOTE | 2020-04-26 18:43 | IPNPDOC ---
Obstetrical Progress Note Date of Service Apr 26, 2020 Subjective Patient reports she is feeling contractions. Objective Vital Signs Date Time Temp Pulse Resp B/P (MAP) Pulse Ox O2 Delivery O2 Flow Rate FiO2 04/26/20 17:28 64 16 139/77 (97) 04/26/20 15:24 98.1 04/26/20 12:54 97 Room Air Assessment Heart Rate (FHR): 125 Variability: Moderate Accelerations: Positive Decelerations: None Heart Rate Tracing: Category I Tocometer Contractions: Yes Frequency: regular Sterile Vaginal Examination Dilation: 4 cm Effacement (%): 80% Station: -1 Cervical Consistency: Soft Cervical Position: Middle Postion/Presentation: Cephalic presentation Assessment and Plan Age: 24 : 3 Term: 2 Pre-term: 0 Abortions: 0 Livin EGA at Admission: 37.2 Status: Reassuring Group B Streptococcus: Negative Anticipate: Vaginal Delivery Additional Comments IV Pitocin ordered and to be started per order. Anesthesia consult when patient desires epidural. ALFONZO ARORA CNM Apr 26, 2020 18:43
[2020-04-26] MEDS ORDERED: OXYTOCIN DRIP 30 UNITS in IV 1 EA IV SCH (18:45)
[2020-04-26] MEDS ORDERED: FENTANYL 2MCG/ML ROPIVACAINE 0.2% IN 0.9% NACL 100ML IVBAG As Ordered ONE (19:41)
[2020-04-26] MEDS ORDERED: EPIDURAL COMMENT XX SCH (21:00)
[2020-04-26] MEDS ORDERED: NALOXONE INJ 0.4MG/1ML VIAL (J2310 PER 1MG) IV PRN (21:00)
[2020-04-26] MEDS ORDERED: FENTANYL/ROPIVACAINE/NACL BAG 100 ML EPIDURAL SCH (21:00)
[2020-04-26] MEDS ORDERED: ePHEDrine SULFATE 25 MG/5 ML(5MG/ML) SYRINGE IV PRN (21:00)
[2020-04-26] MEDS ORDERED: diphenhydrAMINE 50MG/ML VIAL (J1200) IV PRN (21:00)
[2020-04-26] MEDS ORDERED: ONDANSETRON 4MG/2ML VIAL IV PRN (21:00)
[2020-04-26] MEDS ORDERED: REFRIGERATOR IV KEYS XX PRN (21:00)
[2020-04-26] MEDS ORDERED: LABETALOL 100 MG TAB PO SCH (21:00)
[2020-04-26] MEDS ORDERED: LACTATED RINGER'S 1000 ML IV PRN (21:00)
[2020-04-26] MEDS ORDERED: EPIDURAL/PCA KEYS XX PRN (21:00)
[2020-04-27] VITALS (13 sets, daily range): BP systolic 117–143; BP diastolic 62–77
--- NOTE | 2020-04-27 00:11 | IPNPDOC ---
Obstetrical Progress Note Date of Service Apr 27, 2020 Objective Vital Signs Date Time Temp Pulse Resp B/P (MAP) Pulse Ox O2 Delivery O2 Flow Rate FiO2 04/26/20 22:14 76 18 122/61 (81) 04/26/20 21:30 98.1 04/26/20 12:54 97 Room Air Assessment Heart Rate (FHR): 120 Variability: Moderate Accelerations: Positive Decelerations: None Heart Rate Tracing: Category I Tocometer Contractions: Yes Frequency: regular Sterile Vaginal Examination Dilation: 7 cm Effacement (%): 100% Station: 0 Postion/Presentation: Cephalic presentation Assessment and Plan Age: 24 EGA at Admission: 37.2 Status: Reassuring Group B Streptococcus: Negative Anticipate: Vaginal Delivery Additional Comments IV Pitocin is at 10 mu/min. She spontaneously ruptured clear fluid. Reports feeling contractions. Anesthesia notified. ALFONZO ARORA CNM Apr 27, 2020 00:11
[2020-04-27] MEDS ORDERED: OXYTOCIN DRIP 30 UNITS in IV 1 EA IV SCH (02:49)
[2020-04-27] MEDS ORDERED: METHYLERGONOVINE MALEATE 0.2 MG TAB PO PRN (03:00)
[2020-04-27] MEDS ORDERED: ANUSOL HC CREAM 30GM TOP PRN (03:00)
[2020-04-27] MEDS ORDERED: RHOGAM 300 MCG (1500 IU) INJ (J2790) IM SCH (03:00)
[2020-04-27] MEDS ORDERED: ACETAMINOPHEN 500 MG TAB PO PRN (03:00)
[2020-04-27] MEDS ORDERED: ACETAMINOPHEN TAB 650MG DOSE (2X325MG) PO PRN (03:00)
[2020-04-27] MEDS ORDERED: IBUPROFEN 800 MG TAB PO PRN (03:00)
[2020-04-27] MEDS ORDERED: IBUPROFEN 600MG TAB PO PRN (03:00)
[2020-04-27] MEDS ORDERED: DIBUCAINE 1% OINTMENT 30GM TOP PRN (03:00)
[2020-04-27] MEDS ORDERED: MEASLES,MUMPS,RUBELLA VACCINE INJ (MMR-II) (90707) SC SCH (03:00)
[2020-04-27] MEDS ORDERED: DOCUSATE SODIUM 100 MG CAP PO PRN (03:00)
--- NOTE | 2020-04-27 03:26 | DNPDOC ---
[facility] Delivery Note Delivery Note DATE OF DELIVERY: 04/27/20 at 0117 PREDELIVERY DIAGNOSIS: 37-3/7 weeks' gestation. POST DELIVERY DIAGNOSIS: Delivered. PROCEDURE: Spontaneous vaginal delivery. DATA ARCHITECT: Alfonzo Brumfield CNM, CARMEN ANESTHESIA: epidural. ESTIMATED BLOOD LOSS: 200 mL. FINDINGS: 6 pounds 3 ounces; 2810 grams; male , Score 8/9, CHTN on medication. DELIVERY SUMMARY: Marlys is a 24-year-old female who is now a at 37.2 weeks who was admitted to L&D for an IOL. She received a dose of Cytotec and IV Pitocin for IOL. Marlys requested an epidural for pain management. She progressed to fully dilated at 0115 and pushed to a living male in the GOMEZ position with restitution to ROT. The anterior shoulder delivered with ease and the corpus immediately followed. The baby was placed on the maternal abdomen active and crying. The cord was clamped x2 after pulsation ceased and cut by the grandmother. The placenta delivered spontaneously and intact at 0121. Uterine hemostasis was achieved via rapid infusion of IV Pitocin and fundal massage. The vagina, cervix, and perineum was inspected and found to be intact. She plans to formula feed and name him Jose Alejandro. Both mom and baby are in stable condition. All counts of instruments and sponges are correct. ALFONZO BRUMFIELD CNM Apr 27, 2020 03:26
[2020-04-27] MEDS: PRENATAL VITAMINS CHEWABLE TABLET PO SCH (09:10)
[2020-04-27] MEDS: LABETALOL 100 MG TAB PO SCH ×2 (09:10→21:07)
[2020-04-28 06:00] VITALS: BP 121/65
[2020-04-28] MEDS: PRENATAL VITAMINS CHEWABLE TABLET PO SCH ×2 (08:16→08:18)
[2020-04-28 08:17] VITALS: BP 132/78
[2020-04-28] MEDS: LABETALOL 100 MG TAB PO SCH (08:17)
--- NOTE | 2020-04-28 09:22 | IPNPDOC ---
Progress Note Date of Service: Apr 28, 2020 Day#: 1 Progress Note PPD 1 SUBJECT: Marlys is a 24 year old s/p uncomplicated at 37wk after undergoing IOL 2/2 CHTN, doing well day # 1. She has been ambulating, voiding spontaneously without issue and tolerating regular diet. Bottle feeding without issue. Reports lochia is like a normal period. No f/c/n/v/CP/SOB. No POWELL/vision changes/RUQ pain. OBJECTIVE: VITAL SIGNS: Within normal limits, afebrile. Alert and oriented times three. Abdomen: Fundus firm at U-2. Soft, NTTP. Extremities: no edema of BLE ASSESSMENT: Marlys is a 24 year old s/p uncomplicated at 37wk after undergoing IOL 2/2 CHTN, doing well day # 1. Vitals within normal limits, afebrile, hemodynamically stable with no evidence of infection. No s/sx of pre-E. PLAN: 1. Discharge to home today. 2. Tylenol and Motrin for pain. Declines Rx of meds, has some at home if needed 3. Encourage breast feeding and ambulation. 4. Undecided on contraception 5. Routine PP visit in 6 weeks in clinic. 6. Discussed return precautions at length. Bertha Lee MD VS, I&O, 24H, Fishbone Vital Signs/I&O Vital Signs Date Time Temp Pulse Resp B/P (MAP) Pulse Ox O2 Delivery O2 Flow Rate FiO2 04/28/20 08:17 66 132/78 04/28/20 06:00 97.0 20 98 Room Air Bertha Lee MD Apr 28, 2020 09:22
--- NOTE | 2020-04-28 09:25 | DS.PDOC ---
Discharge Summary General Date of Admission Apr 26, 2020 at 12:31 Date of Discharge Apr 28, 2020 Discharge Summary PROCEDURES PERFORMED DURING STAY: spontaneous vaginal delivery ADMITTING DIAGNOSES: 1. CHTN at 37 weeks DISCHARGE DIAGNOSES: 1. CHTN at 37 weeks, delivered COMPLICATIONS/CHIEF COMPLAINT: Induction. HISTORY OF PRESENT ILLNESS/HOSPITAL COURSE: Marlys is a 24 year old s/p uncomplicated at 37wk after undergoing IOL 2/2 CHTN. At time of discharge, vitals within normal limits, afebrile, hemodynamically stable with no evidence of infection. No s/sx of pre-E. DISCHARGE MEDICATIONS: Please see below. ALLERGIES: Please see below. PHYSICAL EXAMINATION ON DISCHARGE: VITAL SIGNS: Within normal limits, afebrile. Alert and oriented times three. Abdomen: Fundus firm at U-2. Soft, NTTP. Extremities: no edema of BLE LABORATORY DATA: Please see below. ACTIVITY: As tolerated, vaginal rest and no heavy lifting 6 weeks DIET: regular DISPOSITION: home DISCHARGE PLAN/INSTRUCTIONS: 1. Discharge to home today. 2. Tylenol and Motrin for pain. Declines Rx of meds, has some at home if needed 3. Encourage breast feeding and ambulation. 4. Undecided on contraception 5. Follow up in 2 days in clinic for bp check, then routine PP visit in 6 weeks in clinic. 6. Discussed return precautions at length. DISCHARGE CONDITION: Stable TIME SPENT ON DISCHARGE: Greater than 20 minutes. Bertha Lee MD Vital Signs/I&Os Vital Signs Date Time Temp Pulse Resp B/P (MAP) Pulse Ox O2 Delivery O2 Flow Rate FiO2 04/28/20 08:17 66 132/78 04/28/20 06:00 97.0 20 98 Room Air Discharge Medications Scheduled Diphenhydramine HCl (Benadryl) 25 Mg Capsule, 25 MG PO QPM, (Reported) Fluconazole (Diflucan) 200 Mg Tablet, 200 MG PO DAILY for yeast infection, (Reported) Labetalol HCl (Labetalol HCl) 100 Mg Tablet, 1 TAB PO BID, (Reported) Sertraline Hcl (Zoloft) 25 Mg Tablet, 75 MG PO DAILY, (Reported) Allergies Coded Allergies: amitriptyline (Verified Allergy, Intermediate, HIVES, 07/30/19) sumatriptan (Verified Allergy, Intermediate, HIVES, 07/30/19) Bertha Lee MD Apr 28, 2020 09:25
[2020-04-28] MEDS ORDERED: ACET-683 PO (09:28)
== END 2020-04-28 14:10 | disposition home or self-care (01) | DRG 807 ==
LOC: M LDI 12:31 → M OBS 04-27 04:12
PROVIDERS: ADMIT Advanced Practice Midwife; ATTEND Advanced Practice Midwife
PROC: 3E033VJ Introduction of Other Hormone into Peripheral Vein, Percutaneous Approach (ICD-10-PCS; 2020-04-26)
PROC: 3E0DXGC Introduction of Other Therapeutic Substance into Mouth and Pharynx, External Approach (ICD-10-PCS; 2020-04-26)
PROC: 10E0XZZ Delivery of Products of Conception, External Approach (ICD-10-PCS; principal; 2020-04-27)
DX: O10.92 Unspecified pre-existing hypertension complicating childbirth (principal); Z37.0 Single live birth; Z3A.37 37 weeks gestation of pregnancy; F32.9 Major depressive disorder, single episode, unspecified; O99.344 Other mental disorders complicating childbirth; Z79.899 Other long term (current) drug therapy; Z88.8 Allergy status to other drugs, medicaments and biological substances

== ENCOUNTER 2020-05-01 10:48 | Emergency (ER) | payer OTHER ==
[~2020-05-01] VITALS: Ht 157.5 cm; Wt 90.7 kg
[~2020-05-01 10:48] MED LIST changes: +ACET-683 PO; +BENA25CA4 PO; +DIFL200T PO; +LABE100T36 PO; +ZOLO25TA PO
[2020-05-01 11:42] LABS: BASO % 0.2 % (0.0-1.0); EOS % 0.1 % (0.0-3.0); HEMATOCRIT 40.1 % (36.0-47.0); HEMOGLOBIN 12.9 g/dl (12.0-15.5); LYMPH # 0.7 10^3/uL (1.5-5.0); LYMPH % 5.6 % (24.0-44.0); MEAN CORPUSCULAR HEMOGLOBIN 26.1 pg (27.0-33.0); MEAN CORPUSCULAR HGB CONC 32.2 g/dl (32.0-36.5); MEAN CORPUSCULAR VOLUME 81.2 fl (80.0-96.0); MONO # 0.4 10^3/uL (0.0-0.8); NEUTROPHILS # 10.7 10^3/uL (1.5-8.5); NEUTROPHILS % 90.4 % (36.0-66.0); PLATELET COUNT, AUTOMATED 323 10^3/uL (150-450); RED BLOOD COUNT 4.94 10^6/uL (4.00-5.40); WHITE BLOOD COUNT 11.8 10^3/uL (4.0-10.0)
[2020-05-01] MEDS ORDERED: NS 1,000 ML IV ONE (11:45)
[2020-05-01] MEDS ORDERED: ACETAMINOPHEN 500 MG TAB PO ONE (11:45)
[2020-05-01 12:04] LABS: INR 0.97; PARTIAL THROMBOPLASTIN TIME 33.3 SECONDS (25.0-38.4); PROTHROMBIN TIME 13.1 SECONDS (11.8-14.0)
[2020-05-01 12:05] LABS: ALT/SGPT 28 U/L (12-78); BILIRUBIN,DIRECT 0.2 MG/DL (0.0-0.2); BILIRUBIN,TOTAL 0.6 MG/DL (0.2-1.0); BLOOD UREA NITROGEN 10 MG/DL (7-18); CALCIUM LEVEL 8.9 MG/DL (8.5-10.1); CARBON DIOXIDE LEVEL 24 MEQ/L (21-32); CHLORIDE LEVEL 103 MEQ/L (98-107); CREATININE FOR GFR 0.79 MG/DL (0.55-1.30); GLOMERULAR FILTRATION RATE > 60.0 (>60); GLUCOSE, FASTING 100 MG/DL (70-100); LIPASE 91 U/L (73-393); POTASSIUM SERUM 3.8 MEQ/L (3.5-5.1); SODIUM LEVEL 136 MEQ/L (136-145); TOTAL PROTEIN 7.1 GM/DL (6.4-8.2)
[2020-05-01] MEDS ORDERED: CLINDAMYCIN 900 MG in IV 1 EA IV ONE (12:15)
[2020-05-01] MEDS ORDERED: GENTAMICIN IV ONE (13:00)
[2020-05-01] MEDS ORDERED: D5W IV ONE (13:00)
[2020-05-01] MEDS ORDERED: cefTRIAXone SOD 2 GM in D5W MINI-BAG PLUS 50 ML IV ONE (13:00)
[2020-05-01 14:17] VITALS: BP 130/73
[2020-05-01] MEDS ORDERED: SERT-141 PO (14:55)
[2020-05-01] MEDS ORDERED: ACET-683 PO (14:55)
== END 2020-05-01 15:44 | disposition left against medical advice (07) ==
LOC: M ED 10:48
DX: O86.12 Endometritis following delivery (principal); O90.89 Other complications of the puerperium, not elsewhere classified; R51 Headache; M54.5 Low back pain; I10 Essential (primary) hypertension; Z88.8 Allergy status to other drugs, medicaments and biological substances; Z79.899 Other long term (current) drug therapy
CPT/HCPCS: 80047; 80048; 80076; 81001; 83605; 83690; 85025; 85610; 85730; 87040; 96365; 96367; 99284; J0696; J1580; U0002

== ENCOUNTER 2020-05-02 13:05 | Outpatient (CLI) | payer OTHER ==
[~2020-05-02] VITALS: Ht 157.5 cm; Wt 81.8 kg
[~2020-05-02 13:05] MED LIST changes: +SERT-141 PO
[2020-05-02 13:20] VITALS: BP 134/76
[2020-05-02] MEDS ORDERED: CLINDAMYCIN 900 MG in IV 1 EA IV ONE (13:30)
[2020-05-02] MEDS ORDERED: cefTRIAXone SOD 2 GM in D5W MINI-BAG PLUS 50 ML IV ONE (14:30)
[2020-05-02] MEDS ORDERED: GENTAMICIN IV ONE (15:30)
[2020-05-02] MEDS ORDERED: D5W IV ONE (15:30)
[2020-05-02 16:45] VITALS: BP 136/80
== END 2020-05-02 16:50 | disposition home or self-care (01) ==
LOC: M OPCLIPED 13:05 → M PED 13:08 → M OPCLIPED 16:50
PROVIDERS: ATTEND Obstetrics & Gynecology
DX: O86.12 Endometritis following delivery (principal)
CPT/HCPCS: 96365; 96367; J0696; J1580

== ENCOUNTER → 2020-06-24 | Outpatient (CLI) | payer OTHER ==
--- NOTE | 2020-06-24 20:43 | REP ---
INDICATION: GENERALIZED ABDOMINAL PAIN COMPARISON: None. TECHNIQUE: Upright view of the chest with supine and upright views of the abdomen and pelvis. FINDINGS: Frontal upright view of the chest demonstrates no acute cardiopulmonary process or free air below the diaphragm to suspect pneumoperitoneum. Supine and upright views of the abdomen and pelvis demonstrate nonspecific bowel gas pattern without obstruction or perforation. No organomegaly. No abnormal calcifications. Skeletal structures normal for age. IMPRESSION: Nonspecific bowel gas pattern. <Electronically signed by Garrett Watson > 06/24/20 [id number]
== END ==
LOC: M CLY 09:50
PROVIDERS: ATTEND Nurse Practitioner Family
DX: R10.84 Generalized abdominal pain (principal)

== ENCOUNTER → 2020-06-24 | Outpatient (REF) | payer OTHER | LOC: M SFHCCLAY 15:43 | PROVIDERS: ATTEND Nurse Practitioner Family | DX: R10.84 Generalized abdominal pain (principal) ==

== ENCOUNTER → 2020-12-15 | Outpatient (REF) | payer OTHER ==
[~2020-12-15] MED LIST changes: -LABE100T36 PO; +LABE100T5 PO
== END ==
LOC: M SFHCCLAY 07:46
PROVIDERS: ATTEND Physician Assistant
DX: R30.0 Dysuria (principal)

== ENCOUNTER → 2021-04-28 | Outpatient (CLI) | payer OTHER ==
[2021-04-28 10:57] LABS: HEMATOCRIT 40.4 % (36.0-47.0); HEMOGLOBIN 13.9 g/dl (12.0-15.5); MEAN CORPUSCULAR HEMOGLOBIN 29.3 pg (27.0-33.0); MEAN CORPUSCULAR HGB CONC 34.4 g/dl (32.0-36.5); MEAN CORPUSCULAR VOLUME 85.2 fl (80.0-96.0); PLATELET COUNT, AUTOMATED 301 10^3/uL (150-450); RED BLOOD COUNT 4.74 10^6/uL (4.00-5.40); WHITE BLOOD COUNT 8.2 10^3/uL (4.0-10.0)
[2021-04-28 11:20] LABS: CREATININE,RANDOM URINE 69.8 MG/DL; TOTAL PROTEIN,RANDOM URINE 12.3 MG/DL (0.0-12.0)
[2021-04-28 11:29] LABS: ALT/SGPT 19 U/L (12-78); BILIRUBIN,TOTAL 0.7 MG/DL (0.2-1.0); CREATININE FOR GFR 0.56 MG/DL (0.55-1.30); GLOMERULAR FILTRATION RATE > 60.0 (>60); LDH LACTATE DEHYDROGENASE 159 U/L (84-246)
[2021-04-28 12:09] LABS: HEPATITIS C VIRUS ABY INDEX < 0.0 INDEX (<0.8)
[2021-04-28 12:10] LABS: HIV 1&2 SCREEN CENTAUR NEGATIVE (NEGATIVE)
[2021-04-28 12:33] LABS: GC DNA AMPLIFICATION NEGATIVE (NEGATIVE)
== END ==
LOC: M PLALAB 08:38
PROVIDERS: ATTEND Advanced Practice Midwife
DX: O10.011 Pre-existing essential hypertension complicating pregnancy, first trimester (principal); Z3A.00 Weeks of gestation of pregnancy not specified

== ENCOUNTER → 2021-06-20 | Outpatient (CLI) | payer OTHER ==
--- NOTE | 2021-06-20 18:22 | REP ---
INDICATION: ANATOMY. COMPARISON: None. TECHNIQUE: Real-time sonographic evaluation of the gravid uterus performed. FINDINGS: Estimated gestational age is20 weeks 1 day, EDC 11/06/2021. Today's measurements indicate appropriate growth. Presentation: Variable Placenta posterior, grade 0, without evidence of placenta previa. heart rate is recorded at 143 beats per minute. Amniotic fluid is subjectively normal. Closed cervical length is measured at 4.0 cm. Biometry chart: BPD: 48 mm, 20 weeks 4 days, 61st percentile. HC: 23 mm, 20 weeks 5 days, 65th percentile AC: 149 mm, 20 weeks 1 days, 51st percentile Femur length: 32 mm, 20 weeks 0 days, 46th percentile HC to AC ratio: 1.22, normal range 1.06-1.24. Estimated weight: 337g, 47th percentile. anatomy: Cranium: Grossly normal Lateral Ventricles/Choroid Plexus: Grossly normal Posterior Fossa/Cerebellum: Grossly normal Nose/lips/profile: Grossly normal Four chamber heart: Grossly normal Right ventricular outflow tract: Grossly normal Left ventricular outflow tract: Grossly normal Left-sided stomach: Grossly normal Kidneys: Grossly normal Bladder: Grossly normal Cord Insertion: Grossly normal 3 vessel cord: Grossly normal Spine: Grossly normal IMPRESSION: Viable single intrauterine gestation as above. <Electronically signed by Seth Manzo > 06/20/21 [id number]
== END ==
LOC: M WHC 13:59
PROVIDERS: ATTEND Advanced Practice Midwife
DX: O10.012 Pre-existing essential hypertension complicating pregnancy, second trimester (principal); Z3A.17 17 weeks gestation of pregnancy

== ENCOUNTER → 2021-06-30 | Outpatient (REF) | payer OTHER | LOC: M SFHCWAGY 13:01 | PROVIDERS: ATTEND Advanced Practice Midwife | DX: O10.012 Pre-existing essential hypertension complicating pregnancy, second trimester (principal); N39.0 Urinary tract infection, site not specified ==

== ENCOUNTER → 2021-07-28 | Outpatient (CLI) | payer OTHER ==
[~2021-07-28] MED LIST changes: +ONDA-83 PO; +OXYC1TAB23 PO
[2021-07-28 13:22] LABS: HEMATOCRIT 35.2 % (36.0-47.0); HEMOGLOBIN 11.4 g/dl (12.0-15.5); MEAN CORPUSCULAR HEMOGLOBIN 27.3 pg (27.0-33.0); MEAN CORPUSCULAR HGB CONC 32.4 g/dl (32.0-36.5); MEAN CORPUSCULAR VOLUME 84.4 fl (80.0-96.0); PLATELET COUNT, AUTOMATED 310 10^3/uL (150-450); RED BLOOD COUNT 4.17 10^6/uL (4.00-5.40); WHITE BLOOD COUNT 8.7 10^3/uL (4.0-10.0)
== END ==
LOC: M PLALAB 09:11
PROVIDERS: ATTEND Advanced Practice Midwife
DX: O10.012 Pre-existing essential hypertension complicating pregnancy, second trimester (principal)

== ENCOUNTER → 2021-09-16 | Outpatient (REF) | payer OTHER ==
[~2021-09-16] MED LIST changes: -ONDA-83 PO; -OXYC1TAB23 PO
[2021-09-16 17:14] LABS: APPEARANCE, URINE CLEAR (CLEAR); BACTERIA, URINE AUTO NEGATIVE (NEGATIVE); BILIRUBIN, URINE AUTO NEGATIVE (NEGATIVE); BLOOD, URINE BLOOD NEGATIVE (NEGATIVE); COLOR, URINE STRAW (YELLOW); GLUCOSE, URINE (UA) AUTO NEGATIVE (NEGATIVE); KETONE, URINE AUTO NEGATIVE (NEGATIVE); LEUKOCYTE ESTERASE, URINE AUTO NEGATIVE (NEGATIVE); NITRITE, URINE AUTO NEGATIVE (NEGATIVE); PROTEIN, URINE AUTO NEGATIVE (NEGATIVE); RBC, URINE AUTO 0 /HPF (0-3); SPECIFIC GRAVITY URINE AUTO 1.006 (1.002-1.035); SQUAMOUS EPITHELIAL CELL UR AU 0 /HPF (0-6); UROBILINOGEN, URINE AUTO 0.2 mg/dL (0.0-2.0); WBC, URINE AUTO 0 /HPF (0-3)
== END ==
LOC: M SFHCWAGY 16:37
PROVIDERS: ATTEND Advanced Practice Midwife
DX: O26.899 Other specified pregnancy related conditions, unspecified trimester (principal)

== ENCOUNTER → 2021-09-22 | Outpatient (CLI) | payer OTHER | LOC: M WHC 07:40 | PROVIDERS: ATTEND Advanced Practice Midwife | DX: O10.013 Pre-existing essential hypertension complicating pregnancy, third trimester (principal) ==

== ENCOUNTER 2021-09-25 18:45 | Outpatient (CLI) | payer OTHER ==
[~2021-09-25] VITALS: Ht 157.5 cm; Wt 92.4 kg
[2021-09-25 19:04] VITALS: BP 106/59
[2021-09-25 19:52] LABS: BASO % 0.2 % (0.0-1.0); HEMATOCRIT 33.2 % (36.0-47.0); HEMOGLOBIN 10.7 g/dl (12.0-15.5); LYMPH # 0.9 10^3/uL (1.5-5.0); LYMPH % 11.1 % (24.0-44.0); MEAN CORPUSCULAR HGB CONC 32.2 g/dl (32.0-36.5); MEAN CORPUSCULAR VOLUME 74.4 fl (80.0-96.0); MONO # 0.5 10^3/uL (0.0-0.8); MONO % 5.8 % (2.0-8.0); NEUTROPHILS % 82.5 % (36.0-66.0); PLATELET COUNT, AUTOMATED 257 10^3/uL (150-450); RED BLOOD COUNT 4.46 10^6/uL (4.00-5.40); WHITE BLOOD COUNT 8.5 10^3/uL (4.0-10.0)
[2021-09-25] MEDS ORDERED: ACETAMINOPHEN 500 MG TAB PO ONE (22:00)
== END 2021-09-25 22:56 | disposition home or self-care (01) ==
LOC: M LDO 18:45
PROVIDERS: ATTEND Obstetrics & Gynecology
DX: O26.893 Other specified pregnancy related conditions, third trimester (principal); Z3A.35 35 weeks gestation of pregnancy; R25.2 Cramp and spasm; Z20.822 Contact with and (suspected) exposure to COVID-19; Z88.8 Allergy status to other drugs, medicaments and biological substances
CPT/HCPCS: 36415; 59025; 81001; 85025; 87086; 87426; G0378; G0463

== ENCOUNTER 2021-09-30 09:05 | Outpatient (CLI) | payer OTHER ==
[~2021-09-30] VITALS: Ht 157.5 cm; Wt 94.2 kg
[2021-09-30 09:23] VITALS: BP 127/72
[2021-09-30] MEDS ORDERED: PRENTAB9 PO (09:25)
[2021-09-30] MEDS ORDERED: LR 1,000 ML IV SCH (09:30)
[2021-09-30] MEDS ORDERED: PROMETHAZINE INJ 25 MG/ML VIAL (J2550) IV ONE (09:30)
[2021-09-30] MEDS ORDERED: BUTORPHANOL 2 MG/ML INJ (J0595) IV ONE (09:30)
[2021-09-30] MEDS ORDERED: LACTATED RINGER'S 1000 ML IV ONE (09:30)
[2021-09-30] MEDS ORDERED: HOME MED LIST COMPLETE! XX SCH (09:30)
[2021-09-30 10:10] LABS: APPEARANCE, URINE CLEAR (CLEAR); BACTERIA, URINE AUTO NEGATIVE (NEGATIVE); BILIRUBIN, URINE AUTO NEGATIVE (NEGATIVE); BLOOD, URINE BLOOD NEGATIVE (NEGATIVE); COLOR, URINE YELLOW (YELLOW); GLUCOSE, URINE (UA) AUTO NEGATIVE (NEGATIVE); KETONE, URINE AUTO NEGATIVE (NEGATIVE); LEUKOCYTE ESTERASE, URINE AUTO NEGATIVE (NEGATIVE); MUCUS, URINE SMALL (NEGATIVE); NITRITE, URINE AUTO NEGATIVE (NEGATIVE); PROTEIN, URINE AUTO NEGATIVE (NEGATIVE); RBC, URINE AUTO 3 /HPF (0-3); SPECIFIC GRAVITY URINE AUTO 1.017 (1.002-1.035); SQUAMOUS EPITHELIAL CELL UR AU 1 /HPF (0-6); WBC, URINE AUTO 1 /HPF (0-3)
[2021-09-30 10:38] LABS: HEMATOCRIT 31.8 % (36.0-47.0); HEMOGLOBIN 9.9 g/dl (12.0-15.5); MEAN CORPUSCULAR HEMOGLOBIN 23.7 pg (27.0-33.0); MEAN CORPUSCULAR HGB CONC 31.1 g/dl (32.0-36.5); MEAN CORPUSCULAR VOLUME 76.1 fl (80.0-96.0); PLATELET COUNT, AUTOMATED 250 10^3/uL (150-450); RED BLOOD COUNT 4.18 10^6/uL (4.00-5.40); WHITE BLOOD COUNT 9.4 10^3/uL (4.0-10.0)
[2021-09-30 11:02] LABS: ALBUMIN 2.5 GM/DL (3.2-5.2); ALT/SGPT 17 U/L (12-78); AMYLASE 57 U/L (25-115); BILIRUBIN,TOTAL 0.4 MG/DL (0.2-1.0); BLOOD UREA NITROGEN 8 MG/DL (7-18); CALCIUM LEVEL 8.1 MG/DL (8.5-10.1); CARBON DIOXIDE LEVEL 23 MEQ/L (21-32); CHLORIDE LEVEL 110 MEQ/L (98-107); GLOMERULAR FILTRATION RATE > 60.0 (>60); GLUCOSE, FASTING 75 MG/DL (70-100); LIPASE 111 U/L (73-393); POTASSIUM SERUM 3.6 MEQ/L (3.5-5.1); SODIUM LEVEL 141 MEQ/L (136-145); TOTAL PROTEIN 6.5 GM/DL (6.4-8.2)
[2021-09-30] MEDS ORDERED: OXYC1TAB23 PO (14:23)
[2021-09-30] MEDS ORDERED: ONDA-83 PO (14:23)
== END 2021-09-30 15:07 | disposition home or self-care (01) ==
LOC: M LDO 09:05
PROVIDERS: ATTEND Advanced Practice Midwife
DX: O26.893 Other specified pregnancy related conditions, third trimester (principal); M54.50 Low back pain, unspecified; R11.0 Nausea; O16.3 Unspecified maternal hypertension, third trimester; Z87.59 Personal history of other complications of pregnancy, childbirth and the puerperium; Z3A.34 34 weeks gestation of pregnancy
CPT/HCPCS: 36415; 59025; 76775; 80053; 81001; 82150; 83690; 85027; 87086; 96374; 96375; G0378; G0463; J0595

== ENCOUNTER → 2021-10-06 | Outpatient (REF) | payer OTHER ==
[~2021-10-06] MED LIST changes: +ONDA-83 PO; +OXYC1TAB23 PO
== END ==
LOC: M SFHCWAGY 16:56
PROVIDERS: ATTEND Advanced Practice Midwife
DX: O10.013 Pre-existing essential hypertension complicating pregnancy, third trimester (principal)

== ENCOUNTER → 2021-10-06 | Outpatient (REF) | payer OTHER | LOC: M PLALAB 10:38 | PROVIDERS: ATTEND Advanced Practice Midwife | DX: O10.013 Pre-existing essential hypertension complicating pregnancy, third trimester (principal); Z53.9 Procedure and treatment not carried out, unspecified reason ==

== ENCOUNTER 2021-10-11 08:38 | Outpatient (CLI) | payer OTHER ==
[~2021-10-11] VITALS: Ht 157.5 cm; Wt 95.4 kg
[~2021-10-11 08:38] MED LIST changes: +ALBUTEROL SULFATE 2.5 MG/0.5 ML INH NEB SOLN INH PRN; +EPINEPHrine INJ 1 MG/ML 1ML AMP IM PRN; +FERRIC CARBOXYMALTOSE INJ 750 MG, VIAL MATE ADAPTER 1 EACH in NS 250 ML IV ONE; +IRON SUCROSE 500 MG in NS 250 ML OVER 4 HRS IV ONE; +NS 1,000 ML IV SCH; +diphenhydrAMINE 50MG/ML VIAL (J1200) IV PRN; +methylPREDNISolone 125MG 2ML VIAL IV PRN
[2021-10-11 08:52] VITALS: BP 152/90
[2021-10-11 10:00] VITALS: BP 148/79
[2021-10-11 11:30] VITALS: BP 141/74
[2021-10-11 12:35] VITALS: BP 150/69
[2021-10-11 13:26] VITALS: BP 139/77
== END 2021-10-11 13:35 | disposition home or self-care (01) ==
LOC: M INFU 08:38
PROVIDERS: ATTEND Advanced Practice Midwife
DX: D64.9 Anemia, unspecified (principal); Z88.8 Allergy status to other drugs, medicaments and biological substances
CPT/HCPCS: 96365; 96366; J1756

== ENCOUNTER → 2021-10-12 | Outpatient (CLI) | payer OTHER ==
[~2021-10-12] MED LIST changes: -ALBUTEROL SULFATE 2.5 MG/0.5 ML INH NEB SOLN INH PRN; -EPINEPHrine INJ 1 MG/ML 1ML AMP IM PRN; -FERRIC CARBOXYMALTOSE INJ 750 MG, VIAL MATE ADAPTER 1 EACH in NS 250 ML IV ONE; -IRON SUCROSE 500 MG in NS 250 ML OVER 4 HRS IV ONE; -NS 1,000 ML IV SCH; -diphenhydrAMINE 50MG/ML VIAL (J1200) IV PRN; -methylPREDNISolone 125MG 2ML VIAL IV PRN
== END ==
LOC: M WHC 14:35
PROVIDERS: ATTEND Advanced Practice Midwife
DX: O10.013 Pre-existing essential hypertension complicating pregnancy, third trimester (principal)

== ENCOUNTER 2021-10-17 15:45 | Inpatient (IN) | payer OTHER ==
[~2021-10-17] VITALS: Ht 157.5 cm; Wt 96.6 kg
[2021-10-17] VITALS (20 sets, daily range): BP systolic 101–164; BP diastolic 51–98
[2021-10-17] MEDS ORDERED: HOME MED LIST COMPLETE! XX SCH ×2 (16:35)
[2021-10-17] MEDS ORDERED: LR 1,000 ML IV SCH (17:55)
[2021-10-17 18:04] LABS: HEMATOCRIT 31.2 % (36.0-47.0); MEAN CORPUSCULAR HEMOGLOBIN 23.8 pg (27.0-33.0); MEAN CORPUSCULAR HGB CONC 32.1 g/dl (32.0-36.5); MEAN CORPUSCULAR VOLUME 74.1 fl (80.0-96.0); PLATELET COUNT, AUTOMATED 285 10^3/uL (150-450); RED BLOOD COUNT 4.21 10^6/uL (4.00-5.40)
[2021-10-17] MEDS: miSOPROStol 50MCG 1/2 TABLET SL SCH ×2 (18:11→22:12)
[2021-10-17] MEDS ORDERED: FENTANYL 2MCG/ML ROPIVACAINE 0.2% IN 0.9% NACL 100ML IVBAG As Ordered ONE (20:54)
[2021-10-17] MEDS ORDERED: PENICILLIN G POTASSIUM IV 5 MU in D5W MINI-BAG PLUS 100 ML IV ONE (21:00)
[2021-10-17] MEDS ORDERED: diphenhydrAMINE 50MG/ML VIAL (J1200) IV PRN (22:05)
[2021-10-17] MEDS ORDERED: REFRIGERATOR IV KEYS XX PRN (22:05)
[2021-10-17] MEDS ORDERED: NALOXONE INJ 0.4MG/1ML VIAL (J2310 PER 1MG) IV PRN (22:05)
[2021-10-17] MEDS ORDERED: EPIDURAL/PCA KEYS XX PRN (22:05)
[2021-10-17] MEDS ORDERED: LACTATED RINGER'S 1000 ML IV PRN (22:05)
[2021-10-17] MEDS ORDERED: FENTANYL/ROPIVACAINE/NACL BAG 100 ML EPIDURAL SCH (22:05)
[2021-10-17] MEDS ORDERED: EPIDURAL COMMENT XX SCH (22:05)
[2021-10-17] MEDS ORDERED: ePHEDrine SULFATE 25 MG/5 ML(5MG/ML) SYRINGE IV PRN (22:05)
[2021-10-17] MEDS ORDERED: ONDANSETRON 4MG/2ML VIAL IV PRN (22:05)
[2021-10-18] VITALS (11 sets, daily range): BP systolic 103–181; BP diastolic 56–90
[2021-10-18] MEDS ORDERED: PENICILLIN G POTASSIUM IV 2.5 MU in IV 1 EA IV SCH (01:00)
[2021-10-18] MEDS ORDERED: OXYTOCIN 30 UNITS IN 0.9% NaCl 500ML IV BAG (J2590) As Ordered ONE (01:17)
[2021-10-18] MEDS ORDERED: LIDOCAINE 1% MDV 20ML VIAL As Ordered ONE (01:50)
[2021-10-18] MEDS ORDERED: OXYTOCIN DRIP 30 UNITS in IV 1 EA IV ONE (02:10)
[2021-10-18] MEDS ORDERED: IBUPROFEN 600MG TAB PO PRN (02:10)
[2021-10-18] MEDS ORDERED: DOCUSATE SODIUM 100MG CAPSULE PO PRN (02:10)
[2021-10-18] MEDS ORDERED: LIDOCAINE 1% MDV 20ML VIAL INFIL ONE (02:10)
[2021-10-18] MEDS ORDERED: ACETAMINOPHEN TAB 650MG DOSE (2X325MG) PO PRN (02:10)
[2021-10-18] MEDS ORDERED: MEASLES,MUMPS,RUBELLA VACCINE INJ (MMR-II) (90707) SC SCH (02:10)
[2021-10-18] MEDS ORDERED: DIBUCAINE 1% OINTMENT 30GM TOP PRN (02:10)
[2021-10-18] MEDS ORDERED: METHYLERGONOVINE MALEATE 0.2 MG TAB PO PRN (02:10)
[2021-10-18] MEDS ORDERED: RHOGAM 300 MCG (1500 IU) INJ (J2790) IM SCH (02:10)
[2021-10-18] MEDS: PRENATAL VITAMINS CHEWABLE TABLET PO SCH (07:58)
[2021-10-18] MEDS: IBUPROFEN 800 MG TAB PO PRN ×2 (07:59→16:26)
[2021-10-18] MEDS: ACETAMINOPHEN 500 MG TAB PO PRN ×2 (10:10→19:29)
[2021-10-18] MEDS ORDERED: BOOSTRIX/ADACEL VACCINE (DIPHTH/PERTUSS/ACELL/TETANUS) 0.5ML SYR IM ONE (15:00)
[2021-10-19 06:00] VITALS: BP 115/58
[2021-10-19] MEDS: PRENATAL VITAMINS CHEWABLE TABLET PO SCH (09:00)
== END 2021-10-19 18:18 | disposition home or self-care (01) | DRG 807 ==
LOC: M LDI 15:45 → M OBS 10-18 04:05
PROVIDERS: ADMIT Specialist; ATTEND Specialist
PROC: 10E0XZZ Delivery of Products of Conception, External Approach (ICD-10-PCS; principal; 2021-10-17)
PROC: 0HQ9XZZ Repair Perineum Skin, External Approach (ICD-10-PCS; 2021-10-17)
PROC: 3E0P7GC Introduction of Other Therapeutic Substance into Female Reproductive, Via Natural or Artificial Opening (ICD-10-PCS; 2021-10-17)
DX: O10.02 Pre-existing essential hypertension complicating childbirth (principal); Z37.0 Single live birth; Z3A.37 37 weeks gestation of pregnancy; O99.824 Streptococcus B carrier state complicating childbirth; O70.0 First degree perineal laceration during delivery

== ENCOUNTER → 2021-11-03 | Outpatient (REF) | payer OTHER ==
[2021-11-03 16:11] LABS: BASO # 0.1 10^3/uL (0.0-0.2); BASO % 0.8 % (0.0-1.0); EOS # 0.1 10^3/uL (0.0-0.5); EOS % 1.8 % (0.0-3.0); HEMATOCRIT 40.8 % (36.0-47.0); HEMOGLOBIN 12.5 g/dl (12.0-15.5); LYMPH # 2.3 10^3/uL (1.5-5.0); LYMPH % 29.7 % (24.0-44.0); MEAN CORPUSCULAR HEMOGLOBIN 24.1 pg (27.0-33.0); MEAN CORPUSCULAR HGB CONC 30.6 g/dl (32.0-36.5); MEAN CORPUSCULAR VOLUME 78.8 fl (80.0-96.0); MONO # 0.4 10^3/uL (0.0-0.8); MONO % 5.5 % (2.0-8.0); NEUTROPHILS # 4.7 10^3/uL (1.5-8.5); NEUTROPHILS % 61.9 % (36.0-66.0); PLATELET COUNT, AUTOMATED 342 10^3/uL (150-450); RED BLOOD COUNT 5.18 10^6/uL (4.00-5.40); WHITE BLOOD COUNT 7.6 10^3/uL (4.0-10.0)
[2021-11-03 16:49] LABS: ALBUMIN 3.7 GM/DL (3.2-5.2); ALT/SGPT 20 U/L (12-78); BILIRUBIN,TOTAL 0.5 MG/DL (0.2-1.0); BLOOD UREA NITROGEN 14 MG/DL (7-18); CALCIUM LEVEL 9.3 MG/DL (8.5-10.1); CARBON DIOXIDE LEVEL 29 MEQ/L (21-32); CHLORIDE LEVEL 104 MEQ/L (98-107); CREATININE FOR GFR 0.77 MG/DL (0.55-1.30); FERRITIN 34 NG/ML (8-252); FREE T4 1.36 NG/DL (0.76-1.46); GLOMERULAR FILTRATION RATE > 60.0 (>60); GLUCOSE, FASTING 82 MG/DL (70-100); IRON (FE) 49 UG/DL (50-170); PERCENT SATURATION 16.2 % (13.2-45.0); POTASSIUM SERUM 4.3 MEQ/L (3.5-5.1); SODIUM LEVEL 138 MEQ/L (136-145); THYROID STIMULATING HORMONE 0.052 uIU/ML (0.358-3.740); TOTAL IRON BINDING CAPACITY 302 UG/DL (250-450); TOTAL PROTEIN 7.2 GM/DL (6.4-8.2)
[2021-11-03 16:51] LABS: TOTAL 25(OH) VITAMIN D 15.6 NG/ML (30.0-100.0); VITAMIN B12 LEVEL 582 PG/ML (247-911)
== END ==
LOC: M SFHCCLAY 10:01
PROVIDERS: ATTEND Nurse Practitioner Family
DX: D64.9 Anemia, unspecified (principal); F41.8 Other specified anxiety disorders; R51.9 Headache, unspecified

== ENCOUNTER → 2021-11-08 | Outpatient (CLI) | payer OTHER | LOC: M CLY 13:13 | PROVIDERS: ATTEND Nurse Practitioner Family | DX: M54.50 Low back pain, unspecified (principal) ==

== ENCOUNTER → 2021-11-17 | Outpatient (REF) | payer OTHER | LOC: M SFHCCLAY 11:27 | PROVIDERS: ATTEND Nurse Practitioner Family | DX: R10.9 Unspecified abdominal pain (principal) ==

== ENCOUNTER → 2022-02-09 | Outpatient (REF) | payer MEDICAID ==
[~2022-02-09] MED LIST changes: -ZONI100C17 PO; +ZONI100C67 PO
[2022-02-09 16:02] LABS: BASO % 0.6 % (0.0-1.0); EOS # 0.1 10^3/uL (0.0-0.5); EOS % 0.7 % (0.0-3.0); HEMATOCRIT 39.7 % (36.0-47.0); HEMOGLOBIN 13.6 g/dl (12.0-15.5); LYMPH # 1.8 10^3/uL (1.5-5.0); LYMPH % 24.7 % (24.0-44.0); MEAN CORPUSCULAR HEMOGLOBIN 29.3 pg (27.0-33.0); MEAN CORPUSCULAR HGB CONC 34.3 g/dl (32.0-36.5); MEAN CORPUSCULAR VOLUME 85.6 fl (80.0-96.0); MONO # 0.3 10^3/uL (0.0-0.8); MONO % 4.7 % (2.0-8.0); NEUTROPHILS % 68.9 % (36.0-66.0); PLATELET COUNT, AUTOMATED 304 10^3/uL (150-450); RED BLOOD COUNT 4.64 10^6/uL (4.00-5.40); WHITE BLOOD COUNT 7.2 10^3/uL (4.0-10.0)
[2022-02-09 16:36] LABS: ALBUMIN 3.8 GM/DL (3.2-5.2); ALT/SGPT 17 U/L (12-78); BILIRUBIN,TOTAL 0.7 MG/DL (0.2-1.0); BLOOD UREA NITROGEN 14 MG/DL (7-18); CALCIUM LEVEL 8.7 MG/DL (8.5-10.1); CARBON DIOXIDE LEVEL 24 MEQ/L (21-32); CHLORIDE LEVEL 110 MEQ/L (98-107); CREATININE FOR GFR 0.82 MG/DL (0.55-1.30); FERRITIN 29 NG/ML (8-252); FREE T4 1.22 NG/DL (0.76-1.46); GLOMERULAR FILTRATION RATE > 60.0 (>60); GLUCOSE, FASTING 80 MG/DL (70-100); IRON (FE) 76 UG/DL (50-170); PERCENT SATURATION 30.4 % (13.2-45.0); SODIUM LEVEL 140 MEQ/L (136-145); THYROID STIMULATING HORMONE 0.391 uIU/ML (0.358-3.740); TOTAL IRON BINDING CAPACITY 250 UG/DL (250-450); TOTAL PROTEIN 6.8 GM/DL (6.4-8.2)
[2022-02-09 16:41] LABS: TOTAL 25(OH) VITAMIN D 40.3 NG/ML (30.0-100.0)
== END ==
LOC: M SFHCCLAY 11:26
PROVIDERS: ATTEND Nurse Practitioner Family
DX: D50.9 Iron deficiency anemia, unspecified (principal); E55.9 Vitamin D deficiency, unspecified

== ENCOUNTER → 2022-04-24 | Outpatient (REF) | payer OTHER, MEDICAID ==
[~2022-04-24] MED LIST changes: -LABE100T5 PO; +LABE100T71 PO
== END ==
LOC: M SFHCWAGY 17:00
PROVIDERS: ATTEND Nurse Practitioner Family
DX: Z12.4 Encounter for screening for malignant neoplasm of cervix (principal)

== ENCOUNTER → 2022-05-08 | Outpatient (REF) | payer OTHER | LOC: M SFHCCLAY 13:19 | PROVIDERS: ATTEND Physician Assistant | DX: R30.0 Dysuria (principal) ==

== ENCOUNTER → 2022-05-15 | Outpatient (REF) | payer OTHER ==
[2022-05-15 17:29] LABS: BASO # 0.1 10^3/uL (0.0-0.2); BASO % 1.1 % (0.0-1.0); EOS # 0.2 10^3/uL (0.0-0.5); EOS % 2.5 % (0.0-3.0); HEMATOCRIT 43.5 % (36.0-47.0); HEMOGLOBIN 14.7 g/dl (12.0-15.5); LYMPH # 2.8 10^3/uL (1.5-5.0); LYMPH % 42.4 % (24.0-44.0); MEAN CORPUSCULAR HEMOGLOBIN 29.5 pg (27.0-33.0); MEAN CORPUSCULAR HGB CONC 33.8 g/dl (32.0-36.5); MEAN CORPUSCULAR VOLUME 87.3 fl (80.0-96.0); MONO # 0.4 10^3/uL (0.0-0.8); NEUTROPHILS # 3.1 10^3/uL (1.5-8.5); NEUTROPHILS % 47.8 % (36.0-66.0); PLATELET COUNT, AUTOMATED 313 10^3/uL (150-450); RED BLOOD COUNT 4.98 10^6/uL (4.00-5.40); WHITE BLOOD COUNT 6.5 10^3/uL (4.0-10.0)
[2022-05-15 18:14] LABS: PERCENT SATURATION 36.9 % (13.2-45.0)
== END ==
LOC: M SFHCCLAY 13:14
PROVIDERS: ATTEND Nurse Practitioner Family
DX: N93.9 Abnormal uterine and vaginal bleeding, unspecified (principal); Z97.5 Presence of (intrauterine) contraceptive device

== ENCOUNTER → 2022-06-01 | Outpatient (CLI) | payer OTHER | LOC: M WHC 08:54 | PROVIDERS: ATTEND Nurse Practitioner Family | DX: N93.9 Abnormal uterine and vaginal bleeding, unspecified (principal); Z97.5 Presence of (intrauterine) contraceptive device ==

== ENCOUNTER → 2022-08-14 | Outpatient (CLI) | payer OTHER | LOC: M WHC 11:30 | PROVIDERS: ATTEND Physician Assistant | DX: N30.90 Cystitis, unspecified without hematuria (principal) ==

== ENCOUNTER → 2023-01-25 | Outpatient (REF) | payer OTHER ==
[2023-01-25 17:31] LABS: BASO # 0.1 10^3/uL (0.0-0.2); BASO % 0.8 % (0.0-1.0); EOS # 0.2 10^3/uL (0.0-0.5); EOS % 2.4 % (0.0-3.0); HEMATOCRIT 39.3 % (36.0-47.0); HEMOGLOBIN 13.7 g/dl (12.0-15.5); LYMPH # 2.5 10^3/uL (1.5-5.0); LYMPH % 39.3 % (24.0-44.0); MEAN CORPUSCULAR HEMOGLOBIN 30.4 pg (27.0-33.0); MEAN CORPUSCULAR HGB CONC 34.9 g/dl (32.0-36.5); MEAN CORPUSCULAR VOLUME 87.3 fl (80.0-96.0); MONO # 0.3 10^3/uL (0.0-0.8); NEUTROPHILS # 3.3 10^3/uL (1.5-8.5); NEUTROPHILS % 52.2 % (36.0-66.0); PLATELET COUNT, AUTOMATED 328 10^3/uL (150-450); WHITE BLOOD COUNT 6.3 10^3/uL (4.0-10.0)
[2023-01-25 17:36] LABS: ALKALINE PHOSPHATASE 67 U/L (46-116); ALT/SGPT 22 U/L (7.0-40); AST/SGOT 17 U/L (<34); BILIRUBIN,TOTAL 0.7 MG/DL (0.3-1.2); BLOOD UREA NITROGEN 17 MG/DL (9-23); CALCIUM LEVEL 8.9 MG/DL (8.5-10.1); CARBON DIOXIDE LEVEL 23 MMOL/L (20-31); CHLORIDE LEVEL 109 MMOL/L (98-107); CREATININE FOR GFR 0.77 MG/DL (0.55-1.30); FREE T4 1.27 NG/DL (0.89-1.76); GLOMERULAR FILTRATION RATE > 60.0 (>60); GLUCOSE, FASTING 83 MG/DL (60-100); IRON (FE) 73 UG/DL (50-170); PERCENT SATURATION 32.6 % (13.2-45.0); POTASSIUM SERUM 3.9 MMOL/L (3.5-5.1); SODIUM LEVEL 140 MMOL/L (136-145); TOTAL IRON BINDING CAPACITY 224 UG/DL (250-425); TOTAL PROTEIN 6.6 G/DL (5.7-8.2)
[2023-01-25 17:37] LABS: THYROID STIMULATING HORMONE 0.701 uIU/ML (0.55-4.78); TOTAL 25(OH) VITAMIN D 42.8 NG/ML (20.0-100.0)
== END ==
LOC: M SFHCCLAY 11:06
PROVIDERS: ATTEND Nurse Practitioner Family
DX: G43.909 Migraine, unspecified, not intractable, without status migrainosus (principal); D50.9 Iron deficiency anemia, unspecified; E55.9 Vitamin D deficiency, unspecified; F41.8 Other specified anxiety disorders

== ENCOUNTER → 2023-05-31 | Outpatient (REF) | payer OTHER | LOC: M SFHCWAGY 13:49 | PROVIDERS: ATTEND Nurse Practitioner Family | DX: Z12.4 Encounter for screening for malignant neoplasm of cervix (principal) ==

== ENCOUNTER → 2023-07-09 | Outpatient (REF) | payer OTHER ==
[2023-07-09 11:55] LABS: BASO # 0.1 10^3/uL (0.0-0.2); BASO % 0.7 % (0.0-1.0); EOS # 0.1 10^3/uL (0.0-0.5); HEMATOCRIT 40.9 % (36.0-47.0); HEMOGLOBIN 14.2 g/dl (12.0-15.5); LYMPH # 2.6 10^3/uL (1.5-5.0); LYMPH % 36.5 % (24.0-44.0); MEAN CORPUSCULAR HEMOGLOBIN 30.5 pg (27.0-33.0); MEAN CORPUSCULAR HGB CONC 34.7 g/dl (32.0-36.5); MONO # 0.4 10^3/uL (0.0-0.8); MONO % 5.2 % (2.0-8.0); NEUTROPHILS # 3.9 10^3/uL (1.5-8.5); NEUTROPHILS % 55.2 % (36.0-66.0); PLATELET COUNT, AUTOMATED 258 10^3/uL (150-450); RED BLOOD COUNT 4.65 10^6/uL (4.00-5.40); WHITE BLOOD COUNT 7.1 10^3/uL (4.0-10.0)
[2023-07-09 12:21] LABS: IRON (FE) 130 UG/DL (50-170)
[2023-07-09 12:22] LABS: PERCENT SATURATION 58.3 % (13.2-45.0); TOTAL IRON BINDING CAPACITY 223 UG/DL (250-425)
[2023-07-09 12:23] LABS: ALKALINE PHOSPHATASE 63 U/L (46-116); ALT/SGPT 11 U/L (7.0-40); AST/SGOT 12 U/L (<34); BILIRUBIN,TOTAL 0.8 MG/DL (0.3-1.2); BLOOD UREA NITROGEN 18 MG/DL (9-23); CALCIUM LEVEL 9.2 MG/DL (8.5-10.1); CARBON DIOXIDE LEVEL 23 MMOL/L (20-31); CHLORIDE LEVEL 110 MMOL/L (98-107); GLOMERULAR FILTRATION RATE > 60.0 (>60); GLUCOSE, FASTING 86 MG/DL (60-100); POTASSIUM SERUM 4.2 MMOL/L (3.5-5.1); SODIUM LEVEL 143 MMOL/L (136-145); TOTAL PROTEIN 6.7 G/DL (5.7-8.2)
[2023-07-10 13:07] LABS: IgG P18 AB Absent (.); IgG P23 AB Absent (.); IgG P28 AB Absent (.); IgG P30 AB Absent (.); IgG P39 AB Present (.); IgG P41 AB Present (.); IgG P45 AB Absent (.); IgG P66 AB Absent (.); IgG P93 AB Absent (.); IgM P23 AB Absent (.); IgM P39 AB Absent (.); IgM P41 AB Absent (.); LYME IgG WB INTERPRETATION Negative (.); LYME IgM WB INTERPRETATION Negative (.)
== END ==
LOC: M SFHCCLAY 08:38
PROVIDERS: ATTEND Nurse Practitioner Family
DX: G43.909 Migraine, unspecified, not intractable, without status migrainosus (principal); D50.9 Iron deficiency anemia, unspecified; E55.9 Vitamin D deficiency, unspecified; F41.8 Other specified anxiety disorders; L72.9 Follicular cyst of the skin and subcutaneous tissue, unspecified; W57.XXXA Bitten or stung by nonvenomous insect and other nonvenomous arthropods, initial encounter

== ENCOUNTER → 2023-08-16 | Outpatient (REF) | payer OTHER | LOC: M SFHCDERM 17:43 | PROVIDERS: ATTEND Physician Assistant | DX: L72.11 Pilar cyst (principal) ==

== ENCOUNTER → 2024-01-22 | Outpatient (REF) | payer OTHER ==
[~2024-01-22] MED LIST changes: +LABE100T40 PO; -LABE100T71 PO
[2024-01-22 21:20] LABS: APPEARANCE, URINE HAZY (CLEAR); BACTERIA, URINE AUTO NEGATIVE (NEGATIVE); BILIRUBIN, URINE AUTO NEGATIVE (NEGATIVE); BLOOD, URINE BLOOD NEGATIVE (NEGATIVE); COLOR, URINE YELLOW (YELLOW); GLUCOSE, URINE (UA) AUTO NEGATIVE (NEGATIVE); KETONE, URINE AUTO TRACE mg/dL (NEGATIVE); LEUKOCYTE ESTERASE, URINE AUTO NEGATIVE (NEGATIVE); MUCUS, URINE SMALL (NEGATIVE); NITRITE, URINE AUTO NEGATIVE (NEGATIVE); PROTEIN, URINE AUTO NEGATIVE (NEGATIVE); RBC, URINE AUTO 0 /HPF (0-3); SPECIFIC GRAVITY URINE AUTO 1.024 (1.002-1.035); SQUAMOUS EPITHELIAL CELL UR AU 1 /HPF (0-6); UROBILINOGEN, URINE AUTO 0.2 mg/dL (0.0-2.0); WBC, URINE AUTO 1 /HPF (0-3)
== END ==
LOC: M LAB REF 21:09
PROVIDERS: ATTEND Physician Assistant
DX: N39.0 Urinary tract infection, site not specified (principal)

== ENCOUNTER → 2024-01-24 | Outpatient (CLI) | payer OTHER | LOC: M PLALAB 14:24 | PROVIDERS: ATTEND Nurse Practitioner Family | DX: Z80.3 Family history of malignant neoplasm of breast (principal); Z80.41 Family history of malignant neoplasm of ovary; Z80.42 Family history of malignant neoplasm of prostate ==

== ENCOUNTER → 2024-09-15 | Outpatient (CLI) | payer MEDICAID, OTHER ==
[2024-09-15 13:59] LABS: BASO % 0.7 % (0.0-1.0); EOS # 0.2 10^3/uL (0.0-0.5); EOS % 3.2 % (0.0-3.0); HEMATOCRIT 40.4 % (36.0-47.0); HEMOGLOBIN 13.6 g/dl (12.0-15.5); LYMPH # 1.8 10^3/uL (1.5-5.0); LYMPH % 31.2 % (24.0-44.0); MEAN CORPUSCULAR HEMOGLOBIN 29.5 pg (27.0-33.0); MEAN CORPUSCULAR HGB CONC 33.7 g/dl (32.0-36.5); MEAN CORPUSCULAR VOLUME 87.6 fl (80.0-96.0); MONO # 0.5 10^3/uL (0.0-0.8); MONO % 8.1 % (2.0-8.0); NEUTROPHILS # 3.3 10^3/uL (1.5-8.5); NEUTROPHILS % 56.6 % (36.0-66.0); PLATELET COUNT, AUTOMATED 254 10^3/uL (150-450); RED BLOOD COUNT 4.61 10^6/uL (4.00-5.40); WHITE BLOOD COUNT 5.9 10^3/uL (4.0-10.0)
[2024-09-15 14:07] LABS: ERYTHROCYTE SEDIMENTATION RATE 15 mm/hr (0-20)
[2024-09-15 14:30] LABS: IMMUNOGLOBULIN A 129.4 MG/DL (40-350)
[2024-09-15 14:32] LABS: ALBUMIN 3.8 G/DL (3.2-5.2); ALKALINE PHOSPHATASE 79 U/L (35-104); ALT/SGPT 16 U/L (7.0-40); AST/SGOT 11 U/L (<34); BILIRUBIN,TOTAL 0.4 MG/DL (0.3-1.2); BLOOD UREA NITROGEN 20 MG/DL (9-23); C REACTIVE PROTEIN QUANTITATIV 2.25 MG/DL (<1.0); CALCIUM LEVEL 9.1 MG/DL (8.5-10.1); CARBON DIOXIDE LEVEL 25 MMOL/L (20-31); CHLORIDE LEVEL 108 MMOL/L (98-107); CREATININE FOR GFR 0.72 MG/DL (0.55-1.30); GLOMERULAR FILTRATION RATE > 60.0 (>60); GLUCOSE, FASTING 88 MG/DL (60-100); POTASSIUM SERUM 4.5 MMOL/L (3.5-5.1); SODIUM LEVEL 141 MMOL/L (136-145)
== END ==
LOC: M PLALAB 11:37
PROVIDERS: ATTEND Internal Medicine Gastroenterology
DX: R14.0 Abdominal distension (gaseous) (principal)

== ENCOUNTER → 2024-10-01 | Outpatient (REF) | payer MEDICAID, OTHER ==
[2024-10-01 17:12] LABS: AMORPHOUS SEDIMENT SMALL (NEGATIVE); APPEARANCE, URINE HAZY (CLEAR); BACTERIA, URINE AUTO 1+ (NEGATIVE); BILIRUBIN, URINE AUTO NEGATIVE (NEGATIVE); BLOOD, URINE BLOOD 1+ (NEGATIVE); COLOR, URINE AMBER (YELLOW); GLUCOSE, URINE (UA) AUTO NEGATIVE (NEGATIVE); KETONE, URINE AUTO NEGATIVE (NEGATIVE); LEUKOCYTE ESTERASE, URINE AUTO 2+ (NEGATIVE); MUCUS, URINE LARGE (NEGATIVE); NITRITE, URINE AUTO NEGATIVE (NEGATIVE); PROTEIN, URINE AUTO 1+ mg/dL (NEGATIVE); RBC, URINE AUTO 2 /HPF (0-3); SPECIFIC GRAVITY URINE AUTO 1.034 (1.002-1.035); SQUAMOUS EPITHELIAL CELL UR AU 9 /HPF (0-6); WBC, URINE AUTO 4 /HPF (0-3)
== END ==
LOC: M SFHCCLAY 16:14
PROVIDERS: ATTEND Nurse Practitioner Family
DX: R10.9 Unspecified abdominal pain (principal)

== ENCOUNTER → 2024-11-17 | Outpatient (REF) | payer MEDICAID, OTHER | LOC: M SFHCCLAY 08:31 | PROVIDERS: ATTEND Nurse Practitioner Family | DX: D50.9 Iron deficiency anemia, unspecified (principal); G43.909 Migraine, unspecified, not intractable, without status migrainosus; E55.9 Vitamin D deficiency, unspecified; F41.8 Other specified anxiety disorders; L72.9 Follicular cyst of the skin and subcutaneous tissue, unspecified ==

== ENCOUNTER → 2024-11-17 | Outpatient (CLI) | payer MEDICAID, OTHER ==
[2024-11-17 13:52] LABS: BASO # 0.1 10^3/uL (0.0-0.2); BASO % 0.8 % (0.0-1.0); EOS # 0.2 10^3/uL (0.0-0.5); EOS % 2.4 % (0.0-3.0); HEMATOCRIT 42.1 % (36.0-47.0); HEMOGLOBIN 14.7 g/dl (12.0-15.5); LYMPH # 2.6 10^3/uL (1.5-5.0); LYMPH % 40.3 % (24.0-44.0); MEAN CORPUSCULAR HEMOGLOBIN 30.4 pg (27.0-33.0); MEAN CORPUSCULAR HGB CONC 34.9 g/dl (32.0-36.5); MONO # 0.3 10^3/uL (0.0-0.8); MONO % 5.2 % (2.0-8.0); NEUTROPHILS # 3.3 10^3/uL (1.5-8.5); NEUTROPHILS % 51.1 % (36.0-66.0); PLATELET COUNT, AUTOMATED 291 10^3/uL (150-450); RED BLOOD COUNT 4.84 10^6/uL (4.00-5.40); WHITE BLOOD COUNT 6.4 10^3/uL (4.0-10.0)
[2024-11-17 13:58] LABS: TOTAL IRON BINDING CAPACITY 246 UG/DL (250-425)
[2024-11-17 13:59] LABS: THYROID STIMULATING HORMONE 1.034 uIU/ML (0.55-4.78)
[2024-11-17 14:00] LABS: ALBUMIN 4.2 G/DL (3.2-5.2); ALKALINE PHOSPHATASE 72 U/L (35-104); ALT/SGPT 12 U/L (7.0-40); AST/SGOT 9 U/L (<34); BILIRUBIN,TOTAL 0.8 MG/DL (0.3-1.2); BLOOD UREA NITROGEN 24 MG/DL (9-23); CALCIUM LEVEL 9.3 MG/DL (8.5-10.1); CARBON DIOXIDE LEVEL 22 MMOL/L (20-31); CHLORIDE LEVEL 112 MMOL/L (98-107); CHOLESTEROL LEVEL 164 MG/DL (<200); CHOLESTEROL RISK RATIO 2.25 (<5); CREATININE FOR GFR 0.85 MG/DL (0.55-1.30); FREE T4 1.36 NG/DL (0.89-1.76); GLOMERULAR FILTRATION RATE > 60.0 (>60); GLUCOSE, FASTING 92 MG/DL (60-100); HDL CHOLESTEROL 72.6 MG/DL (>40); IRON (FE) 119 UG/DL (50-170); LDL CHOLESTEROL 81.6 MG/DL (<100); NON-HDL-C 91.4 MG/DL; PERCENT SATURATION 48.4 % (13.2-45.0); SODIUM LEVEL 143 MMOL/L (136-145); TOTAL PROTEIN 7.1 G/DL (5.7-8.2); TRIGLYCERIDES LEVEL 49 MG/DL (<150)
[2024-11-17 16:39] LABS: FERRITIN 144.5 NG/ML (7.3-270.7)
== END ==
LOC: M PLALAB 11:15
PROVIDERS: ATTEND Nurse Practitioner Family
DX: D50.9 Iron deficiency anemia, unspecified (principal)

== ENCOUNTER → 2025-04-02 | Outpatient (REF) | payer MEDICAID, OTHER | LOC: M SFHCWAGY 15:06 | PROVIDERS: ATTEND Nurse Practitioner Family | DX: N73.9 Female pelvic inflammatory disease, unspecified (principal) ==

== ENCOUNTER → 2025-05-21 | Outpatient (REF) | payer OTHER ==
[2025-05-21 14:17] LABS: BASO # 0.1 10^3/uL (0.0-0.2); BASO % 1.1 % (0.0-1.0); EOS # 0.2 10^3/uL (0.0-0.5); EOS % 3.1 % (0.0-3.0); LYMPH # 2.1 10^3/uL (1.5-5.0); LYMPH % 34.0 % (24.0-44.0); MONO # 0.4 10^3/uL (0.0-0.8); MONO % 6.1 % (2.0-8.0); NEUTROPHILS # 3.4 10^3/uL (1.5-8.5); NEUTROPHILS % 55.4 % (36.0-66.0); PLATELET COUNT, AUTOMATED 281 10^3/uL (150-450)
[2025-05-21 14:27] LABS: ERYTHROCYTE SEDIMENTATION RATE < 1 mm/hr (0-20)
[2025-05-21 14:43] LABS: C REACTIVE PROTEIN QUANTITATIV < 0.50 MG/DL (<1.0)
[2025-05-21 14:44] LABS: RHEUMATOID FACTOR QUANT < 3.5 IU/ML (<14)
== END ==
LOC: M SFHCCLAY 08:46
PROVIDERS: ATTEND Nurse Practitioner Family
DX: M25.50 Pain in unspecified joint (principal)

== ENCOUNTER → 2025-06-08 | Outpatient (REF) | payer OTHER ==
[2025-06-08 16:38] LABS: Trichomonas vaginalis (AMP) NOT DETECTED (NEGATIVE)
[2025-06-08 17:01] LABS: GC DNA AMPLIFICATION NEGATIVE (NEGATIVE)
== END ==
LOC: M SFHCWAGY 15:03
PROVIDERS: ATTEND Nurse Practitioner Family
DX: L29.2 Pruritus vulvae (principal); L43.8 Other lichen planus

== ENCOUNTER → 2025-07-20 | Outpatient (REF) | payer OTHER ==
[2025-07-20 17:43] LABS: BASO # 0.1 10^3/uL (0.0-0.2); BASO % 0.7 % (0.0-1.0); EOS # 0.2 10^3/uL (0.0-0.5); EOS % 2.1 % (0.0-3.0); LYMPH # 2.4 10^3/uL (1.5-5.0); LYMPH % 32.1 % (24.0-44.0); MONO # 0.5 10^3/uL (0.0-0.8); MONO % 6.1 % (2.0-8.0); NEUTROPHILS # 4.4 10^3/uL (1.5-8.5); NEUTROPHILS % 58.7 % (36.0-66.0); PLATELET COUNT, AUTOMATED 315 10^3/uL (150-450)
[2025-07-20 17:50] LABS: ALT/SGPT 13 U/L (7.0-40); AST/SGOT 17 U/L (<34); CALCIUM LEVEL 9.2 MG/DL (8.5-10.1); CARBON DIOXIDE LEVEL 23 MMOL/L (20-31); CHLORIDE LEVEL 109 MMOL/L (98-107); CREATININE FOR GFR 0.74 MG/DL (0.55-1.30); GLOMERULAR FILTRATION RATE > 90.0 (>60); POTASSIUM SERUM 3.8 MMOL/L (3.5-5.1); SODIUM LEVEL 141 MMOL/L (136-145)
[2025-07-20 17:52] LABS: FREE T4 1.50 NG/DL (0.89-1.76); LUTEINIZING HORMONE 7.5 mIU/ML
[2025-07-20 17:53] LABS: TESTOSTERONE 24 NG/DL (14-76)
== END ==
LOC: M SFHCCLAY 10:54
PROVIDERS: ATTEND Nurse Practitioner Family
DX: R61 Generalized hyperhidrosis (principal); M25.50 Pain in unspecified joint